=== PATIENT | female | born 1970 | race Caucasian/White ===

== ENCOUNTER 2018-03-25 07:41 | Day surgery (SDC) | payer BC ==
[2018-03-24 15:16] LABS: Albumin 3.2 g/dL (3.4-5.0); Bilirubin Total 0.3 mg/dL (0.2-1.0); Folic Acid, (Folate) 14.2 ng/mL (3.1-17.5); Protein, Total 5.7 g/dL (6.4-8.2)
[2018-03-24 15:23] LABS: RBC Red Blood Cell Count 3.11 M/uL (3.86-4.86)
--- OUTSIDE RECORDS SUMMARY | 2018-03-25 07:43 | XMS REPORT | Summary of Care ---
:1970 Author Encounter HQ Alec_anil(NITIN) [id number] Date(s): 08/12/14 - 08/12/14 [facility] Outpatient Imaging - [address] [address]- Discharge Disposition: Home Physician Attending: Armando Witt MD Vital Signs No data available for this section Problem List Condition Effective Dates Status Health Status Informant Asthma(Confirmed) Resolved Chronic back pain(Confirmed) Resolved Crohn disease(Confirmed) Resolved Degenerative disc disease(Confirmed) Resolved Allergies, Adverse Reactions, Alerts No data available for this section Medications No data available for this section Results No data available for this section Immunizations Vaccine Date Refusal Reason diphtheria/pertussis, acel/tetanus adult 08/04/12 Procedures No data available for this section Social History No data available for this section Assessment and Plan No data available for this section
--- OUTSIDE RECORDS SUMMARY | 2018-03-25 07:43 | XMS REPORT | Continuity of Care Document ---
:1970 Author Organization Interface Problems Problem Status Onset Classification Date Comments Source Date Reported Low back Active 07/08/19 Problem 10/15/2017 Data migrated Mischer pain<sup>1</sup 15 from [facility] Neuro > Centricity on 12/05/14. Lumbar Active 07/08/19 Problem 10/15/2017 Data migrated Mischer radiculopathy<s 15 from GE Neuro up>2</sup> Centricity on 12/05/14. Asthma Resolved Problem 10/15/2017 Mischer Neuro, LEYDA Hernández Chronic back Resolved Problem 10/15/2017 Mischer pain Neuro, LEYDA Hernández Crohn disease Resolved Problem 10/15/2017 Mischer Neuro, LEYDA Hernández Degenerative Resolved Problem 10/15/2017 Mischer disc disease Neuro, LEYDA Hernández Medications Medication Details Route Status Patient Ordering Order Source Instructions Provider Date Allergies, Adverse Reactions, Alerts Substance Category Reaction Severity Reaction Status Date Comments Source type Reported traMADol<hughes Assertion Drug Active Data Mischer p>1</sup> allergy 5 migrated Neuro from GE Centricity on 12/04/14. Originally documented as CONZIP. rOPINIRole< Assertion Drug Active Data Mischer sup>2</sup> allergy 5 migrated Neuro from GE Centricity on 12/04/14. Originally documented as REQUIP. Immunizations Immunization Date Site Status Last Comments Source Given Updated diphtheria/pertus Right completed Angel Mischer sis, acel/tetanus 3 deltoid Neuro, adult LEYDA Hernández Results Order Results Value Reference Date Interpretation Comments Source Name Range Spine Spine EXAM: MRI LUMBAR SPINE WITHOUT CONTRAST 08/12 - LEYDA lumbar wo lumbar - Edgar contrast contrast This report was dictated by a Sheet Metal Worker Supervisor/ Fellow. I have personally reviewed the images as MRI MRI well as the Resident's interpretation and agree with the findings. DATE: 06/02/2014 at 1416 hours Read by: Melany Velez MD Resident: Melany Velez MD Dictated Date/time: 08/14/14 09:48 Electronically Signed by: Caio Chavez MD 08/14/14 17:16 FINAL REPORT INDICATION: Radiculitis TECHNIQUE: Multiplanar, multisequence MRI of the lumbar spine without intravenous contrast administration. COMPARISON: No prior studies are available for comparison. DISCUSSION: The lumbar spine demonstrates normal alignment. Vertebral bodies are normal in height and signal intensity. No osseous lesions are identified. The conus medullaris is normal is size, signal intensity, and position, terminating at the L1-L2 level. Evaluation of the individual levels demonstrates: L1/L2: No disc herniation, spinal canal stenosis, or neural foraminal narrowing. L2/L3: No disc herniation, spinal canal stenosis, or neural foraminal narrowing. L3/L4: No disc herniation, spinal canal stenosis, or neural foraminal narrowing. There are mild degenerative changes of the bilateral facets with thickening of the ligamentum flavum. L4/L5: There is a mild diffuse 3 mm disc bulge and mild disc height loss. Focal high T2 signal within the posterior disc is consistent with an annular fissure. No spinal canal stenosis or neural foraminal narrowing. L5/S1: There is loss of disc height with mild disc bulge. Fatty degenerative endplate changes are consistent with Modic type II. No spinal canal stenosis or neuroforaminal narrowing. The paraspinal soft tissues and visualized retroperitoneal structures are within normal limits. IMPRESSION: 1. Mild degenerative changes at L4-L5 with a mild disc bulge and annular fissure. Annular fissure is a potential source of discogenic back pain. 2. Diffuse disc bulge with Modic type II degenerative endplate changes L5- S1 Spine Spine EXAM: MRI of the cervical spine without contrast 08/12 - [facility] cervical cervical /2014 - Hernández wo wo contrast contrast MRI MRI DATE: August 12, 2014 03:48:25 PM Read by: Rubi Jones MD Dictated Date/time: 08/14/14 14:11 Electronically Signed by: Rubi Jones MD 08/14/14 14:35 FINAL REPORT CLINICAL HISTORY: 723.4 Brachial Neuritis or Radiculitis Nos COMPARISON: CT cervical spine without contrast August 03, 2012 TECHNIQUE: Sagittal and axial unenhanced images of the cervical spine were obtained. . FINDINGS: The visualized portion of the posterior fossa is unremarkable. The craniocervical junction and C1-C2 articulation are unremarkable. The cervical vertebral bodies are normal in height. Multilevel degener ative changes are noted throughout the cervical spine. Minimal retrolisthesis of C4 on C5. Minimal anterolisthesis of C5 on C6, C6 on C7 and C7 on T1. C2-C3: No significant spinal canal or neural foraminal stenosis. C3-C4: Mild loss of disc height with endplate osteophytes. 2 mm posterior disc osteophyte complex partially effaces the ventral CSF space without mass effect on the cord. Borderline narrowing the spinal canal. The thecal sac measures 10 mm in midline AP dimension. No significant neural foraminal stenosis. Mild bilateral uncovertebral hypertrophy. Mild left greater than right facet hypertrophy. C4-C5: Moderate loss of disc height with endplate osteophytes 3 mm posterior disc osteophyte complex effaces the ventral CSF space and minimally flattens the ventral surface of the cord. Mild spinal can al stenosis. The thecal sac measures 9 mm in midline AP dimension. Bilateral uncovertebral hypertrophy. Right greater the left facet hypertrophy. Mild right greater than left neural foraminal stenosis. C5-C6: Severe loss of disc height with endplate osteophytes and small Schmorl's nodes. 3 mm posterior disc osteophyte complex effaces the ventral CSF space mildly flattens the ventral surface of th e cord. Mild spinal canal stenosis. Thecal sac measures 9 mm in midline AP dimension. Bilateral uncovertebral hypertrophy. Mild bilateral facet hypertrophy. Mild right neural foraminal stenosis. C6-C7: Moderate to severe loss of disc height with endplate osteophytes. 3 mm posterior disc osteophyte complex effaces the ventral CSF space and minimally flattens surface the cord. Borderline to mild spinal canal stenosis. The thecal sac measures 9 to 10 mm in midline AP dimension. Right greater than left uncovertebral hypertrophy. Mild bilateral facet hypertrophy. Moderate right neural foraminal stenosis. C7-T1: Severe loss of disc height with endplate osteophytes and Schmorl's nodes. 2.5 mm posterior disc osteophyte complex partially effaces the ventral CSF space without mass effect on the cord. Th e thecal sac measures 12 mm in midline AP dimension. No significant spinal canal stenosis. Right greater than left uncovertebral hypertrophy. Mild right neural foraminal stenosis. Stable mild chronic superior endplate compression deformity of T4. The cervical cord is normal in signal intensity. No intradural lesions. The paraspinous soft tissues are unremarkable. IMPRESSION: Multilevel degenerative change with loss of disc height and endplate osteophytes throughout the cervical spine. Mild spinal canal stenosis with posterior disc osteophyte complexes mildly fla ttening the ventral surface the cord at C4-C5, C5-C6 and C6-C7. Uncovertebral and facet arthropathy result in neural foraminal stenosis greatest on the right at C6-C7. Vital Signs Vital Sign Value Date Comments Source Encounters Location Location Encounter Encounter Reason Attending ADM DC Status Source Details Type Number For Provider Date Date Visit [facility] Outpt Diag [id number] Armando Witt 08/12 08/13 [facility] Outpatient Services /2014 [facility] MNA Spine Phone [id number] 08/25 08/27 [facility] Message /2017 Neuro MNA Spine Phone [id number] 08/27 08/29 [facility] Message /2017 Neuro Outpatient [id number] DEVORA [facility]02 [facility] Joseph MNA Spine Phone [id number] 09/02 09/04 [facility] Message /2017 Neuro MNA Spine Ambulatory [id number] Devora 09/02 09/02 [facility] Pre-Reg Buys /2017 Neuro Outpatient [id number] DEVORA 09/14 [facility] /2018 Joseph MNA Spine Phone [id number] 09/14 09/16 [facility] Message /2017 Neuro MNA Spine Phone [id number] 09/14 09/16 [facility] Message /2017 Neuro MNA Spine Ambulatory [id number] Armando Witt 09/14 09/14 [facility] Pre-Reg /2017 Neuro Outpatient [id number] DEVORA 09/28 [facility] BU[facility] /2018 Joseph MNA Phone [id number] 09/28 09/30 [facility] Neurosurger Message /2017 Neuro y [facility] MNA Spine Phone [id number] 09/28 09/30 [facility] Message /2017 Neuro MNA Spine Ambulatory [id number] Armando Witt 09/28 09/28 [facility] Pre-Reg /2017 Neuro MNA Spine Phone [id number] 10/09 10/11 [facility] Message /2017 Neuro MNA Spine Phone [id number] 10/09 10/11 [facility] Message /2017 Neuro Outpatient [id number] DEVORA 10/12 [facility] BUYS Joseph MNA Spine Ambulatory [id number] Armando Witt 10/12 10/12 [facility] Pre-Reg /2017 Neuro Procedures Procedure Code Date Perfomer Comments Source
--- OUTSIDE RECORDS SUMMARY | 2018-03-25 07:44 | XMS REPORT | Summary of Care ---
:1970 Author Organization [facility] Spine [facility] Address [address] [facility], [facility] [address] [place] [address]- Encounter HQ Encntr_alias(FIN) [id number] Date(s): 09/02/17 - 09/03/17 [facility] Spine [facility] [address] [facility] [address] [place] [address]- [phone] Vital Signs No data available for this section Problem List Condition Effective Dates Status Health Status Informant Asthma(Confirmed) Resolved Chronic back pain(Confirmed) Resolved Crohn disease(Confirmed) Resolved Degenerative disc disease(Confirmed) Resolved Low back pain1 07/07/14 Active Lumbar radiculopathy2 07/07/14 Active 1Data migrated from [facility] Centricity on 12/05/14.2Data migrated from [facility] Centricity on 12/05/14. Allergies, Adverse Reactions, Alerts Substance Reaction Severity Status traMADol1 Active rOPINIRole2 Active 1Data migrated from [facility] Centricity on 12/04/14. Originally documented as CONZIP.2Data migrated from [facility] Centricity on 12/04/14. Originally documented as REQUIP. Medications No data available for this section Results No data available for this section Immunizations Given and Recorded Vaccine Date Status Refusal Reason diphtheria/pertussis, acel/tetanus adult 08/04/12 Given Procedures No data available for this section Social History No data available for this section Assessment and Plan No data available for this section
--- OUTSIDE RECORDS SUMMARY | 2018-03-25 07:44 | XMS REPORT | Summary of Care ---
:1970 Author Organization [facility] Spine [facility] Address [address] [facility] [address] [place] [address]- Encounter HQ Juliánntr_anil(FIN) [id number] Date(s): 10/12/17 - 10/12/17 [facility] Spine [facility] [address] [facility], [facility] [address] [place], [place] [address] [phone] Attending Physician: Devora Knott NP Referring Physician: Armando Witt MD Vital Signs No data [...]
--- OUTSIDE RECORDS SUMMARY | 2018-03-25 07:44 | XMS REPORT | Summary of Care ---
:1970 Author Organization [facility] Spine [facility] Address [address] [facility] [address] [place] [address]- Encounter HQ Encntr_alias(FIN) [id number] Date(s): 10/09/17 - 10/10/17 [facility] Spine [facility] [address] [place] [address] [address] [place] [address] [phone] Vital Signs No data available for this [...]
--- OUTSIDE RECORDS SUMMARY | 2018-03-25 07:44 | XMS REPORT | Summary of Care ---
:1970 Author Organization [facility] Spine [facility] Address [address] [facility], [facility] [address] [place] [address]- Encounter HQ Encntr_alias(FIN) [id number] Date(s): 09/14/17 - 09/15/17 [facility] Spine [address] [place] [address] [phone] Vital Signs No data available for this [...]
--- OUTSIDE RECORDS SUMMARY | 2018-03-25 07:44 | XMS REPORT ---
:1970 Author Organization [facility] Address [address] Cui [address] [place] [address] Care Team Providers Name Role Phone Unavailable Unavailable Unavailable Problems This patient has no known problems. Allergies, Adverse Reactions, Alerts This patient has no known allergies or adverse reactions. Medications This patient has no known medications.
--- OUTSIDE RECORDS SUMMARY | 2018-03-25 07:44 | XMS REPORT | Summary of Care ---
:1970 Author Organization [facility] Spine [facility] Address [address] [facility], [facility] [address] [place] [address]- Encounter HQ Juliánntr_anil(FIN) [id number] Date(s): 09/28/17 - 09/28/17 [facility] Spine [place] [id number] [facility], [facility] [address] [place] [address] [phone] Attending Physician: Devora Knott NP Referring Physician: [...]
--- OUTSIDE RECORDS SUMMARY | 2018-03-25 07:44 | XMS REPORT | Summary of Care ---
:1970 Author Organization [facility] Spine [facility] Address [address] [facility] [address] [place] [address]- Encounter HQ Juliánntr_anil(FIN) [id number] Date(s): 09/02/17 - 09/02/17 [facility] Spine [facility] [address] [facility] [address] [place] [address] [phone] Attending Physician: Devora Knott NP Referring Physician: [...]
--- OUTSIDE RECORDS SUMMARY | 2018-03-25 07:44 | XMS REPORT | Summary of Care ---
:1970 Author Organization [facility] Spine [facility] Address [address] [facility], [facility] [address] [place] [address]- Encounter HQ Encntr_alias(FIN) [id number] Date(s): 09/14/17 - 09/15/17 [facility] Spine [facility] [address] [facility] [address] [place] [address] [phone] Vital Signs No data available for this [...]
--- OUTSIDE RECORDS SUMMARY | 2018-03-25 07:44 | XMS REPORT | Summary of Care ---
:1970 Author Organization [facility] Spine [facility] Address [address] [facility], [facility] [address] [place] [address]- Encounter HQ Encntr_alievi(FIN) [id number] Date(s): 08/27/17 - 08/28/17 [facility] Spine [facility] [address] [facility] [address] [place] [address] [phone] Vital Signs No data available for this [...]
--- OUTSIDE RECORDS SUMMARY | 2018-03-25 07:44 | XMS REPORT | Summary of Care ---
:1970 Author Organization [facility] Spine [facility] Address [address] [facility], [facility] [address] [place] [address]- Encounter HQ Juliánntr_anil(FIN) [id number] Date(s): 09/14/17 - 09/14/17 [facility] Spine [facility] [address] [facility], [facility] [address] [place] [address] [phone] Attending Physician: Devora Knott NP Referring Physician: [...]
--- OUTSIDE RECORDS SUMMARY | 2018-03-25 07:44 | XMS REPORT | Summary of Care ---
:1970 Author Organization [facility] Spine [facility] Address [address] [facility] [address] [place] [address]- Encounter HQ Encntr_alias(FIN) [id number] Date(s): 10/09/17 - 10/10/17 [facility] Spine [facility] [address] [facility] [address] [place] [address] [phone] Vital Signs No data available for this [...]
--- OUTSIDE RECORDS SUMMARY | 2018-03-25 07:44 | XMS REPORT | Summary of Care ---
:1970 Author Organization [facility] Spine [facility] Address [address] [facility] [address] [place] [address]- Encounter HQ Encntr_alias(FIN) [id number] Date(s): 08/25/17 - 08/26/17 [facility] Spine [facility] [address] [facility] [address] [place] [address] [phone] Vital Signs No data available for this [...]
--- OUTSIDE RECORDS SUMMARY | 2018-03-25 07:44 | XMS REPORT | Summary of Care ---
:1970 Author Organization [facility] Address [address] [place] [address], [address] [place] [address]- Encounter HQ Encntr_alias(FIN) [id number] Date(s): 09/28/17 - 09/29/17 [facility] [address] [facility], [address] [place] [address] [phone] Vital Signs No data available for this [...]
--- OUTSIDE RECORDS SUMMARY | 2018-03-25 07:44 | XMS REPORT | Summary of Care ---
:1970 Author Organization [facility] Spine [facility] Address [address] [facility] [address] [place] [address]- Encounter HQ Encntr_alievi(FIN) [id number] Date(s): 09/28/17 - 09/29/17 [facility] Spine [facility] [address] [place] [address] [address] [place] [address] [phone] Vital Signs No data available for this [...]
[2018-03-25] MEDS ORDERED: NA CHLORIDE 0.9% 250 ML ONE ×2 (09:23→11:48)
[2018-03-25 15:58] LABS: Hematocrit 25.7 % (36.0-45.0)
== END 2018-03-25 15:55 | disposition home or self-care (01) ==
LOC: DS 07:41
PROVIDERS: ATTEND Internal Medicine Medical Oncology
PROC: 30233N1 Transfusion of Nonautologous Red Blood Cells into Peripheral Vein, Percutaneous Approach (ICD-10-PCS; principal; 2018-03-25)
DX: D50.0 Iron deficiency anemia secondary to blood loss (chronic) (principal)
CPT/HCPCS: 36415; 36430; 80053; 82607; 82728; 82746; 83540; 84466; 85014; 85018; 85044; 86850; 86900; 86901; P9016

== ENCOUNTER 2018-08-06 17:53 | Observation (INO) | payer OTHER ==
--- OUTSIDE RECORDS SUMMARY | 2018-08-06 17:56 | XMS REPORT | Continuity of Care Document ---
:1970 Author Organization Interface Problems Problem Status Onset Classification Date Comments Source Date Reported Low back Active 07/08/19 Problem 05/24/2018 Data migrated Mischer pain<sup>1</sup 15 from [facility] Neuro > Centricity on 12/05/14. Lumbar Active 07/08/19 Problem 05/24/2018 Data migrated Mischer radiculopathy<s 15 from GE Neuro up>2</sup> Centricity on 12/05/14. Asthma Resolved Problem 05/24/2018 Mischer Neuro, LEYDA Hernández Chronic back Resolved Problem 05/24/2018 Mischer pain Neuro, LEYDA Hernández Crohn disease Resolved Problem 05/24/2018 Mischer Neuro, LEYDA Hernández Degenerative Resolved Problem 05/24/2018 Mischer disc disease Neuro, LEYDA Hernández Medications [...] contrast This report was dictated by a Lime Hide Inspector/ Fellow. I have personally reviewed the images [...] Type Number For Provider Date Date Visit [facility] Outpt Diag [id number] Armando Witt 08/12 08/13 [facility] Outpatient Services /2014 [facility] MNA Spine Phone [id number] 08/25 08/27 [facility] Message /2017 Neuro MNA Spine Phone [id number] 08/27 08/29 [facility] Message /2017 Neuro Outpatient [id number] DEVORA 09/02 [facility] /2017 Joseph MNA Spine Phone [id number] 09/02 09/04 [facility] Message /2017 Neuro MNA Spine Ambulatory [id number] Devora 09/02 09/02 [facility] Pre-Reg Buys /2017 Neuro Outpatient [id number] DEVORA 09/14 [facility] BU[facility] /2018 [facility] MNA Spine Phone [id number] 09/14 09/16 [facility] Message /2017 Neuro MNA Spine Phone [id number] 09/14 09/16 [facility] Message /2017 Neuro MNA Spine Ambulatory [id number] Armando Witt 09/14 09/14 [facility] Pre-Reg /2017 Neuro Outpatient [id number] DEVORA 09/28 [facility] /2018 [facility] MNA Phone [id number] 09/28 09/30 [facility] Message /2017 Neuro y [facility] MNA Spine Phone [id number] 09/28 09/30 [facility] Message /2017 Neuro MNA Spine Ambulatory [id number] Armando Witt 09/28 09/28 [facility] Pre-Reg /2017 Neuro MNA Spine Phone [id number] 10/09 10/11 [facility] Message /2017 Neuro MNA Spine Phone [id number] 10/09 10/11 [facility] Message /2017 Neuro Outpatient [id number] DEVORA 10/12 [facility] BUYS Joseph MNA Spine Ambulatory [id number] Armando Witt 10/12 10/12 [facility] Pre-Reg /2017 Neuro MNA Phone [id number] 11/03 11/05 [facility] Message /2017 Neuro y [facility] Procedures Procedure Code Date Perfomer Comments Source
--- OUTSIDE RECORDS SUMMARY | 2018-08-06 17:56 | XMS REPORT ---
:1970 [facility] Address [address] [place] [address] Dr. Cui [address] [place] [address] Care Team Providers Name Role Phone Unavailable Unavailable Unavailable Problems This patient has no known problems. Allergies, Adverse Reactions, Alerts This patient has no known allergies or adverse reactions. Medications This patient has no known medications.
[2018-08-06 18:56] LABS: Absolute Lymphocytes (CBC) 1.9 K/uL (0.7-4.9); Absolute Monocytes 0.5 K/uL (0.1-1.3); Absolute Neutrophil 4.1 K/uL (1.8-8.0); Basophils % 0.6 % (0-1.3); Eosinophils % 11.4 % (0-4.4); Hematocrit 36.8 % (36.0-45.0); MPV 8.3 fL (7.6-11.3); Monocytes % 7.1 % (3.3-12.3)
[2018-08-06 19:05] LABS: Protime INR 1.11
[2018-08-06 19:17] LABS: ALT/SGPT 46 U/L (12-78); AST/SGOT 33 U/L (15-37); Albumin 3.4 g/dL (3.4-5.0); Alkaline Phosphatase 115 U/L (45-117); BUN Blood Urea Nitrogen 26 mg/dL (7-18); Bicarbonate 31 mmol/L (21-32); Bilirubin Direct < 0.1 mg/dL (0-0.2); Bilirubin Total 0.3 mg/dL (0.2-1.0); Glucose Level 120 mg/dL (74-106); Magnesium 2.5 mg/dL (1.8-2.4); NT PRO-BNP 18 pg/mL (<125); Potassium 3.8 mmol/L (3.5-5.1); Protein, Total 6.5 g/dL (6.4-8.2); Sodium Level 146 mmol/L (136-145); Troponin (Emerg Dept Use Only) < 0.02 ng/mL (0.0-0.045)
--- NOTE | 2018-08-06 19:18 | RAD REPORT ---
EXAM DESCRIPTION: CT - Head C Spine Mpr Wo Con - 08/06/2018 6:47 pm CLINICAL HISTORY: Head and neck injury status post fall. Head and neck pain COMPARISON: 2016 TECHNIQUE: Computed axial tomography of the head and cervical spine was obtained. Sagittal and coronal reconstruction was performed. All CT scans are performed using dose optimization technique as appropriate and may include automated exposure control or mA/KV adjustment according to patient size. FINDINGS: An intracranial bleed is not seen. The ventricles are normal in caliber. An extra-axial fl uid collection is not noted.Fluid within the visualized sinuses and mastoids is not seen A cervical fracture is not visualized. No dislocation is noted. IMPRESSION: No acute intracranial abnormality is seen. A cervical fracture is not visualized. If the patient continues to have symptoms to suggest intracra nial /spinal cord pathology then MRI would be recommended
--- NOTE | 2018-08-06 19:25 | RAD REPORT ---
EXAM DESCRIPTION: Verónica Single View08/06/2018 7:17 pm CLINICAL HISTORY: Chest pain COMPARISON: none FINDINGS: The lungs appear clear of acute infiltrate. The heart is normal size IMPRESSION: No acute abnormalities displayed
--- NOTE | 2018-08-06 19:25 | RAD REPORT ---
EXAM DESCRIPTION: RAD - Pelvis - 08/06/2018 7:17 pm CLINICAL HISTORY: Pelvic pain status post injury FINDINGS: No fracture or dislocation is seen.
--- NOTE | 2018-08-06 19:25 | RAD REPORT ---
EXAM DESCRIPTION: RAD - Hip Right 2 View - 08/06/2018 7:17 pm CLINICAL HISTORY: Right hip pain FINDINGS: No fracture or dislocation is seen.
--- NOTE | 2018-08-06 23:08 | ER ---
Nurse's Notes [facility] Name: Erlinda Cruz Age: 48 yrs Sex: Female : 1970 Arrival Date: 08/06/2018 Time: 18:01 Bed 27 Private MD: Diagnosis: Syncope and collapse Presentation: 08/06 18:01 Presenting complaint: EMS states: Pt was found by on the kitchen floor 40 ca1 minutes ago. Pt was responsive but it is unknown if pt had LOC, how she got into the floor. Pt is unable to recall how she got on the floor. Pt had a HX of seizure 2 years ago. Pt is on oxycodone and morphine pump for chronic back pain for disc degeneration. Pt is feels cold and EMS is unable to obtain Temp of greater than 92-94F by axilla or oral. Transition of care: patient was not received from another setting of care. Onset of symptoms was August 06, 2018. Risk Assessment: Do you want to hurt yourself or someone else? Patient reports no desire to harm self or others. Initial Sepsis Screen: Does the patient meet any 2 criteria? RR > 20 per min. HR > 90 bpm. Yes Does the patient have a suspected source of infection? No. Patient's initial sepsis screen is negative. Care prior to arrival: Medication(s) given: Normal saline infusion, IV initiated. 20 GA, in the right antecubital area, Glucose check: 146. 18:01 Method Of Arrival: EMS: [facility] ca1 18:01 Acuity: EMMANUEL 3 ca1 Triage Assessment: 18:13 General: Appears in no apparent distress. ill, Behavior is calm, appropriate for age, ca1 drowsy. General: Reports generalized bodyaches. Pain: Complains of pain in scalp. 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 - Social history:: Smoking status: Patient/guardian denies using tobacco. - Ebola Screening: : No symptoms or risks identified at this time. Screenin:20 Abuse screen: Denies threats or abuse. Denies injuries from another. Nutritional rv screening: No deficits noted. Tuberculosis screening: No symptoms or risk factors identified. Fall Risk None identified. Assessment: 19:00 General: Appears in no apparent distress. uncomfortable, Behavior is cooperative, rv agitated. 19:00 Pain: Complains of pain in scalp. Neuro: Level of Consciousness is awake, alert, obeys rv commands, Oriented to person, place, time, situation. Cardiovascular: Capillary refill < 3 seconds. Respiratory: Airway is patent. GI: No signs and/or symptoms were reported involving the gastrointestinal system. : No signs and/or symptoms were reported regarding the genitourinary system. EENT: No signs and/or symptoms were reported regarding the EENT system. Derm: Skin is intact. Musculoskeletal: No signs and/or symptoms reported regarding the musculoskeletal system. 20:33 Reassessment: Patient appears in no apparent distress at this time. Patient and/or rv family updated on plan of care and expected duration. Pain level reassessed. Patient is alert, oriented x 3, equal unlabored respirations, skin warm/dry/pink. Patient states feeling better. Vital Signs: 18:13 BP 133 / 108; Pulse 101; Resp 24; Temp 92.1(O); Pulse Ox 100% on R/A; Weight 104.33 kg; ca1 Height 5 ft. 5 in. (165.10 cm); Pain 8/10; 19:00 BP 115 / 68 LA Supine; Pulse 81; Resp 18 S; Pulse Ox 98% on R/A; rv 19:30 BP 103 / 73 LA Supine; Pulse 86; Resp 17 S; Pulse Ox 96% on R/A; rv 20:00 BP 109 / 74; Pulse 84; Resp 18; Pulse Ox 98% ; rv 20:30 BP 107 / 95; Pulse 84; Resp 16; Pulse Ox 99% ; rv 20:46 Temp 96.1; rv 21:00 BP 118 / 73; Pulse 84; Resp 18; Pulse Ox 98% ; rv 21:30 BP 112 / 71; Pulse 84; Resp 18; Pulse Ox 96% ; rv 22:00 BP 104 / 73 LA Supine; Pulse 84; Resp 18 S; Pulse Ox 96% on R/A; rv 08/07 00:36 BP 113 / 80; Pulse 88; Resp 18; Pulse Ox 98% ; rv 08/06 18:13 Body Mass Index 38.27 (104.33 kg, 165.10 cm) ca1 NIH Stroke Scale Scores: 08/06 18:25 NIHSS Score: 0 cp ED Course: 18:01 Patient arrived in ED. ca1 18:05 Obdulio Centeno PA is PHCP. cp 18:05 Rogelio Haley MD is Attending Physician. cp 18:09 Triage completed. ca1 18:13 Arm band placed on right wrist. ca1 18:[address] vm2 18:47 Houston Felix, JANIS is Primary Nurse. rv 18:48 CT Head C Spine In Process Unspecified. EDMS 19:17 XRAY Chest (1 view) In Process Unspecified. EDMS 19:17 Hip Right 2 View XRAY In Process Unspecified. EDMS 19:17 Pelvis XRAY In Process Unspecified. EDMS 19:20 Patient has correct armband on for positive identification. Bed in low position. Call rv light in reach. Side rails up X 1. Adult w/ patient. residential monitor on. Pulse ox on. NIBP on. 19:20 Maintain EMS IV. Dressing intact. Good blood return noted. Site clean \T\ dry. Gauge \T\ rv site: G20 RIGHT AC. 19:24 Obdulio Domínguez MD is Attending Physician. cp 21:33 CT Chest, Abdomen, Pelvis - W/Contrast In Process Unspecified. EDMS 23:07 Rogelio Perez MD is Hospitalizing Provider. cp 08/07 00:37 No provider procedures requiring assistance completed. Patient admitted, IV remains in rv place. Administered Medications: 08/06 19:00 Drug: NS 0.9% 1000 ml Route: IV; Rate: 1 bolus; Site: right antecubital; rv 20:34 Follow up: IV Status: Completed infusion; IV Intake: 1000ml rv 23:20 Drug: fentaNYL (PF) 25 mcg Route: IVP; Site: right antecubital; rv 08/07 00:36 Follow up: Response: Pain is decreased rv 00:35 Drug: NS 0.9% 1000 ml Route: IV; Rate: 125 ml/hr; Site: right antecubital; rv 00:36 Follow up: IV Status: Infusion continued upon admission rv Intake: 08/06 20:34 IV: 1000ml; Total: 1000ml. rv Outcome: 23:08 Decision to Hospitalize by Provider. cp 08/07 00:37 Admitted to Med/surg accompanied by nurse, via wheelchair, room 225, with chart, Report rv called to COREY Condition: good Instructed on the need for admit, Demonstrated understanding of instructions. 00:38 Patient left the ED. rv NIH Stroke Scale - NIH Stroke Score Date: 08/06/2018 Time: 18:25 Total Score = 0 1a. Level of Consciousness (LOC) - 0(Alert) 1b. Level of Consciousness (LOC) (Year \T\ Age) - 0(Both) 1c. LOC Commands (Open \T\ Closes Eyes/Object Oriented Programmer) - 0(Both) 2. Best Gaze (Lateral Gaze Paresis) - 0(Normal) 3. Visual Field Loss - 0(No visual loss) 4. Facial Palsy - 0(Normal) 5a. Left Arm: Motor (10-second hold) - 0(No drift) 5b. Right Arm: Motor (10-second hold) - 0(No drift) 6a. Left Leg: Motor (5-second hold - always test supine) - 0(No drift) 6b. Right Leg: Motor (5-second hold - always test supine) - 0(No drift) 7. Limb Ataxia (finger/nose \T\ heel/lepe - test with eyes open) - 0(Absent) 8. Sensory Loss (pinprick arms/legs/face) - 0(Normal) 9. Best Language: Aphasia (description/naming/reading) - 0(No aphasia) 10. Dysarthria (speech clarity - read or repeat words) - 0(Normal) 11. Extinction and Inattention (visual/tactile/auditory/spatial/personal) - 0(No abnormality) Initials: cp Signatures: Dispatcher [employer] EDNH Obdulio Centeno PA PA cp McGuire, Victoria vm2 Houston Felix RN RN rv Nora Quezada RN RN ca1 Corrections: (The following items were deleted from the chart) 08/06 18:25 18:13 LMP N/A - Hysterectomy ca1 ca1
--- NOTE | 2018-08-06 23:08 | EDPHYS ---
Physician Documentation [facility] Name: Erlinda Cruz Age: 48 yrs Sex: Female : 1970 Arrival Date: 08/06/2018 Time: 18:01 Bed 27 Private MD: ED Physician Obdulio Domínguez HPI: 08/06 18:20 This 48 yrs old Female presents to ER via EMS with complaints of found on cp ground. 18:20 Details of fall: The patient fell from an upright position, while standing, and struck cp a tile surface. Onset: The symptoms/episode began/occurred 1 hour(s) ago. Associated injuries: The patient sustained injury to the low back, pain. reports he returned home and found patient sitting up on kitchen floor. Patient unable to recall recent events. 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 - Social history:: Smoking status: Patient/guardian denies using tobacco. - Ebola Screening: : No symptoms or risks identified at this time. ROS: 18:25 Constitutional: Positive for chills, Negative for body aches, fever, poor PO intake. cp 18:25 Eyes: Negative for injury, pain, redness, and discharge. cp 18:25 ENT: Negative for drainage from ear(s), ear pain, sore throat, difficulty swallowing, difficulty handling secretions. 18:25 Cardiovascular: Negative for chest pain, edema. 18:25 Respiratory: Negative for cough, wheezing. 18:25 Abdomen/GI: Negative for abdominal pain, vomiting, diarrhea, constipation, black/tarry stool, rectal bleeding. 18:25 Back: Positive for pain at rest, pain with movement, of the low back. 18:25 : Negative for urinary symptoms, vaginal bleeding. 18:25 Skin: Negative for rash. 18:25 Neuro: Positive for syncope, weakness, Negative for altered mental status. 18:25 All other systems are negative. Exam: 18:25 Constitutional: The patient appears in no acute distress, alert, awake, cp non-diaphoretic, non-toxic, well developed, well nourished, uncomfortable. 18:25 Head/Face: Normocephalic, atraumatic. cp 18:25 Eyes: Periorbital structures: appear normal, Pupils: equal, round, and reactive to light and accomodation, Extraocular movements: intact throughout, Conjunctiva: normal, no exudate, no injection, Sclera: no appreciated abnormality, Lids and lashes: appear normal, bilaterally. 18:25 ENT: External ear(s): are unremarkable, Ear canal(s): are normal, clear, TM's: dullness, bilaterally, Nose: is normal, Mouth: Lips: moist, Oral mucosa: moist, Posterior pharynx: Airway: no evidence of obstruction, patent, swelling, is not appreciated, erythema, is not appreciated, exudate, is not appreciated, Voice: is normal. 18:25 Neck: C-spine: C-collar placed in ED. 18:25 Chest/axilla: Inspection: normal, Palpation: is normal, no crepitus, no tenderness. 18:25 Cardiovascular: Rate: tachycardic, Rhythm: regular, Pulses: Pulses are 2+ in right radial artery and left radial artery. Heart sounds: murmur, not appreciated, Edema: ankle edema, that is mild, JVD: is not appreciated. 18:25 Respiratory: the patient does not display signs of respiratory distress, Respirations: normal, no use of accessory muscles, no retractions, no splinting, no tachypnea, labored breathing, is not present, Breath sounds: are clear throughout, no decreased breath sounds, no stridor, no wheezing. 18:25 Abdomen/GI: Inspection: abdomen appears normal, Bowel sounds: active, all quadrants, Palpation: soft, in all quadrants, mild abdominal tenderness, in all quadrants, voluntary guarding, is not appreciated, involuntary guarding, is not appreciated. 18:25 Back: pain, that is moderate, of the lumbar area, ROM is painful, with all movement, Straight leg raises: of both lower extremities does not illicit pain. 18:25 Musculoskeletal/extremity: Extremities: grossly normal except: noted in the right hip: pain, tenderness, ROM: limited passive range of motion due to pain, in the right hip. 18:25 Skin: cellulitis, is not appreciated, no rash present. 18:25 Neuro: Orientation: to person, place \T\ time. Mentation: slow to respond, sleepy, Motor: moves all fours, general weakness w/o focal deficits, Sensation: no obvious gross deficits. 19:30 ECG was reviewed by the Attending Physician. cp Vital Signs: 18:13 BP 133 / 108; Pulse 101; Resp 24; Temp 92.1(O); Pulse Ox 100% on R/A; Weight 104.33 kg; ca1 Height 5 ft. 5 in. (165.10 cm); Pain 8/10; 19:00 BP 115 / 68 LA Supine; Pulse 81; Resp 18 S; Pulse Ox 98% on R/A; rv 19:30 BP 103 / 73 LA Supine; Pulse 86; Resp 17 S; Pulse Ox 96% on R/A; rv 20:00 BP 109 / 74; Pulse 84; Resp 18; Pulse Ox 98% ; rv 20:30 BP 107 / 95; Pulse 84; Resp 16; Pulse Ox 99% ; rv 20:46 Temp 96.1; rv 21:00 BP 118 / 73; Pulse 84; Resp 18; Pulse Ox 98% ; rv 21:30 BP 112 / 71; Pulse 84; Resp 18; Pulse Ox 96% ; rv 22:00 BP 104 / 73 LA Supine; Pulse 84; Resp 18 S; Pulse Ox 96% on R/A; rv 08/07 00:36 BP 113 / 80; Pulse 88; Resp 18; Pulse Ox 98% ; rv 08/06 18:13 Body Mass Index 38.27 (104.33 kg, 165.10 cm) ca1 NIH Stroke Scale Scores: 08/06 18:25 NIHSS Score: 0 cp MDM: 18:16 Patient medically screened. cp 18:30 Differential diagnosis: closed head injury, fracture, multiple trauma, CVA, syncope, cp cardiac arrythmia, seizure. 22:55 Physician consultation: Rogelio Perez MD was contacted at 22:55, regarding admission, cp to the telemetry unit. patient's condition. 23:00 Data reviewed: vital signs, nurses notes, lab test result(s), EKG, radiologic studies, cp CT scan, plain films, I have discussed the patient's presentation/case with the attending Emergency Department Physician; and as a result, I will admit patient. 23:00 Test interpretation: by ED physician or midlevel provider: ECG, plain radiologic cp studies. Counseling: I had a detailed discussion with the patient and/or guardian regarding: the historical points, exam findings, and any diagnostic results supporting the discharge/admit diagnosis, lab results, radiology results. Response to treatment: the patient's symptoms have mildly improved after treatment. 08/06 18:16 Order name: Urine Microscopic Only cp 08/06 18:16 Order name: UDS cp 08/06 18:16 Order name: Basic Metabolic Panel; Complete Time: 19:28 cp 08/06 19:28 Interpretation: Normal except: NA 146; CL 108; GLUC 120; BUN 26; GFR 63. cp 08/06 18:16 Order name: CBC with Diff; Complete Time: 19:28 cp 08/06 20:18 Interpretation: Normal except: HGB 11.8; MCH 26.9; RDW 15.3; EOSINOPHIL % 11.4; EOSA cp 0.8. 08/06 18:16 Order name: LFT's; Complete Time: 19:28 cp 08/06 18:16 Order name: Magnesium; Complete Time: 19:28 cp 08/06 19:29 Interpretation: MG 2.5; Reviewed. cp 08/06 18:16 Order name: NT PRO-BNP; Complete Time: 19:28 cp 08/06 18:16 Order name: PT-INR; Complete Time: 19:28 cp 08/06 18:16 Order name: Troponin (emerg Dept Use Only); Complete Time: 19:28 cp 08/06 18:16 Order name: ETOH Level; Complete Time: 19:28 cp 08/06 18:16 Order name: Lactate; Complete Time: 19:28 cp 08/06 18:16 Order name: Urine Microscopic Only EDMS 08/06 18:16 Order name: Urine Drug Screen EDNY 08/06 23:49 Order name: CBC with Automated Diff EDNY 08/06 18:16 Order name: XRAY Chest (1 view); Complete Time: 19:28 cp 08/06 18:16 Order name: EKG; Complete Time: 18:17 cp 08/06 18:16 Order name: Hip Right 2 View XRAY; Complete Time: 19:28 cp 08/06 18:16 Order name: Pelvis XRAY; Complete Time: 19:28 cp 08/06 18:16 Order name: CT Head C Spine; Complete Time: 19:28 cp 08/06 20:46 Order name: CT Chest, Abdomen, Pelvis - W/Contrast 08/06 23:49 Order name: CONS Pharmacy Consult [facility] 08/06 23:49 Order name: CBC with Automated Diff [facility] 08/06 23:49 Order name: Comprehensive Metabolic Panel [facility] 08/06 23:49 Order name: Comprehensive Metabolic Panel [facility] 08/06 23:49 Order name: Troponin I [facility] 08/06 23:49 Order name: Troponin I [facility] 08/06 23:49 Order name: Troponin I [facility] 08/06 18:16 Order name: Cardiac monitoring; Complete Time: 18:47 cp 08/06 18:16 Order name: EKG - Nurse/Tech; Complete Time: 18:47 08/06 18:16 Order name: IV Saline Lock; Complete Time: 18:47 08/06 18:16 Order name: Labs collected and sent; Complete Time: 18:47 08/06 18:16 Order name: O2 Per Protocol; Complete Time: 18:47 08/06 18:16 Order name: O2 Sat Monitoring; Complete Time: 18:47 08/06 18:16 Order name: C-Collar; Complete Time: 18:48 08/06 19:44 Order name: Misc. Order: ambulate patient; Complete Time: 20:34 08/06 23:49 Order name: Heart Healthy EDNY EC:30 Rate is 82 beats/min. Rhythm is regular. GA interval is normal. QRS interval is normal. cp QT interval is normal. T waves are Inverted in lead III. Interpreted by me. Reviewed by me. Administered Medications: 19:00 Drug: NS 0.9% 1000 ml Route: IV; Rate: 1 bolus; Site: right antecubital; rv 20:34 Follow up: IV Status: Completed infusion; IV Intake: 1000ml rv 23:20 Drug: fentaNYL (PF) 25 mcg Route: IVP; Site: right antecubital; rv 08/07 00:36 Follow up: Response: Pain is decreased rv 00:35 Drug: NS 0.9% 1000 ml Route: IV; Rate: 125 ml/hr; Site: right antecubital; rv 00:36 Follow up: IV Status: Infusion continued upon admission rv Disposition: 08/06/18 23:08 Hospitalization ordered by Rogelio Perez for Observation. Preliminary diagnosis is Syncope and collapse. - Bed requested for Telemetry/MedSurg (observation). - Status is Observation. rv - Condition is Stable. - Problem is new. - Symptoms have improved. UTI on Admission? No NIH Stroke Scale - NIH Stroke Score Date: 08/06/2018 Time: 18:25 Total Score = 0 1a. Level of Consciousness (LOC) - 0(Alert) 1b. Level of Consciousness (LOC) (Year \T\ Age) - 0(Both) 1c. LOC Commands (Open \T\ Closes Eyes/Pathology Teacher) - 0(Both) 2. Best Gaze (Lateral Gaze Paresis) - 0(Normal) 3. Visual Field Loss - 0(No visual loss) 4. Facial Palsy - 0(Normal) 5a. Left Arm: Motor (10-second hold) - 0(No drift) 5b. Right Arm: Motor (10-second hold) - 0(No drift) 6a. Left Leg: Motor (5-second hold - always test supine) - 0(No drift) 6b. Right Leg: Motor (5-second hold - always test supine) - 0(No drift) 7. Limb Ataxia (finger/nose \T\ heel/lepe - test with eyes open) - 0(Absent) 8. Sensory Loss (pinprick arms/legs/face) - 0(Normal) 9. Best Language: Aphasia (description/naming/reading) - 0(No aphasia) 10. Dysarthria (speech clarity - read or repeat words) - 0(Normal) 11. Extinction and Inattention (visual/tactile/auditory/spatial/personal) - 0(No abnormality) Initials: cp Addendum: 08/10/2018 11:07 Co-signature as Attending Physician, Obdulio Domínguez MD I agree with the [facility] assessment and plan of care. Signatures: Dispatcher [employer] EDMS Yenny Lau RN RN mw Anderson, Corey, MD MD cha Page, Corey, PA PA cp Vicente, Ronaldo, RN RN rv AcNora clayton RN RN ca1 Corrections: (The following items were deleted from the chart) 08/06 20:18 20:18 Normal except: HGB 11.8; MCH 26.9; RDW 15.3; EOSINOPHIL % 11.4. cp cp 23:46 23:08 Hospitalization Ordered by Rogelio Perez MD for Observation. Preliminary mw diagnosis is Syncope and collapse. Bed requested for Telemetry/MedSurg (observation). Status is Observation. Condition is Stable. Problem is new. Symptoms have improved. UTI on Admission? No. cp 08/07 00:36 08/06 23:08 Teran ordered. cp rv 08/07 00:38 08/06 23:46 08/06/2018 23:08 Hospitalization Ordered by Rogelio Perez MD for rv Observation. Preliminary diagnosis is Syncope and collapse. Bed requested for Telemetry/MedSurg (observation). Status is Observation. Condition is Stable. Problem is new. Symptoms have improved. UTI on Admission? No. mw
[2018-08-06] MEDS ORDERED: FENTANYL CITR 100 MCG/2 ML ONE (23:14)
[2018-08-06] MEDS ORDERED: NA CHLORIDE 0.9% 1,000 ML ONE (23:38)
[2018-08-06] MEDS ORDERED: ACETAMINOPHEN 500 MG TAB PO PRN (23:46)
[2018-08-06] MEDS ORDERED: MORPHINE 2 MG/ML SYR IV PRN (23:46)
[2018-08-06] MEDS ORDERED: ONDANSETRON 4 MG/2 ML VIAL IV PRN (23:46)
[2018-08-07] MEDS: NA CHLORIDE 0.9% 1,000 ML IV SCH ×4 (01:22→19:45)
[2018-08-07] MEDS: GABAPENTIN 300 MG CAP PO SCH (05:20)
[2018-08-07 06:01] LABS: Absolute Lymphocytes (CBC) 1.5 K/uL (0.7-4.9); Absolute Monocytes 0.5 K/uL (0.1-1.3); Absolute Neutrophil 3.1 K/uL (1.8-8.0); Basophils % 0.7 % (0-1.3); Eosinophils % 13.6 % (0-4.4); Hematocrit 32.3 % (36.0-45.0); MPV 8.5 fL (7.6-11.3); Monocytes % 7.6 % (3.3-12.3); RBC Red Blood Cell Count 3.83 M/uL (3.86-4.86)
[2018-08-07 06:05] LABS: ALT/SGPT 39 U/L (12-78); AST/SGOT 31 U/L (15-37); Albumin 2.9 g/dL (3.4-5.0); Alkaline Phosphatase 99 U/L (45-117); BUN Blood Urea Nitrogen 22 mg/dL (7-18); Bicarbonate 32 mmol/L (21-32); Bilirubin Total 0.3 mg/dL (0.2-1.0); Glucose Level 96 mg/dL (74-106); Potassium 4.3 mmol/L (3.5-5.1); Protein, Total 5.7 g/dL (6.4-8.2); Sodium Level 148 mmol/L (136-145); Troponin I < 0.02 ng/mL (0.0-0.045)
[2018-08-07] MEDS ORDERED: MOMETASONE FUROATE IN PRN (06:42)
[2018-08-07] MEDS ORDERED: CERTOLIZUMAB PEGOL 200 MG IM SCH (06:45)
[2018-08-07] MEDS ORDERED: HOME MED 1 EA UNK (Dexlansoprazole [Dexilant] 60 MG) PO SCH (09:00)
[2018-08-07] MEDS ORDERED: GABAPENTIN 1800 MG PO SCH (09:00)
[2018-08-07] MEDS: HOME MED 1 EA UNK (Fluticasone/Salmeterol [Advair 250/50 Diskus*] 2 PUFF) IH SCH (09:00)
[2018-08-07] MEDS: clonazePAM 0.5 MG TAB PO SCH ×3 (09:05→20:22)
[2018-08-07] MEDS: OXYCODONE HCL 5 MG TAB PO SCH ×3 (10:05→18:29)
--- NOTE | 2018-08-07 10:29 | EKG ---
Test Date: 2018-08-06 Test Time: 19:24:59 Metal Can Inspector: JOSE MEASUREMENT RESULTS: Intervals: Rate: 82 RI: 188 QRSD: 80 QT: 408 QTc: 476 Tea: P: 42 RI: 188 QRS: 25 T: -10 INTERPRETIVE STATEMENTS: Normal sinus rhythm Nonspecific T wave abnormality Prolonged QT Abnormal ECG Compared to ECG 06/27/2015 16:25:39 Prolonged QT interval now present T-wave abnormality still present Electronically Signed On 08-07-18 10:28:14 CDT by Kenneth Hobbs
--- NOTE | 2018-08-07 12:31 | P.PN ---
Subjective Date of Service: 08/07/18 Chief Complaint: Syncope Subjective: No C/O voiced Patient seen and examined at bedside. No family at bedside. Chart reviewed and case discussed with nursing staff. Patient admitted for syncope and collapse. Patient unsure what happened, no family at bedside. Patient states she is doing well now. Denies any chest pain, shortness of breath, dizziness, headache, vision changes, speech changes. Review of Systems 10-point ROS is otherwise unremarkable Physical Examination - Vital Signs Temperature: 96.8 F Blood Pressure: 133/81 Pulse: 80 Respirations: 18 Pulse Ox (%): 94 - Physical Exam General: Alert, In no apparent distress, Oriented x3 HEENT: Atraumatic, PERRLA, EOMI Neck: Supple, JVD not distended Respiratory: Clear to auscultation bilaterally, Normal air movement Cardiovascular: Regular rate/rhythm, Normal S1 S2 Gastrointestinal: Normal bowel sounds, No tenderness Musculoskeletal: No tenderness Integumentary: No rashes Neurological: Normal speech, Normal tone, Normal affect Lymphatics: No axilla or inguinal lymphadenopathy - Studies Laboratory Data (last 24 hrs) 08/06/18 18:40: PT 13.1 H, INR 1.11 08/06/18 18:40: WBC 7.4, Hgb 11.8 L, Hct 36.8, Plt Count 274 08/06/18 18:40: Sodium 146 H, Potassium 3.8, BUN 26 H, Creatinine 0.96, Glucose 120 H, Magnesium 2.5 H, Total Bilirubin 0.3, AST 33, ALT 46, Alkaline Phosphatase 115 Assessment And Plan - Current Problems (Diagnosis) (1) Syncope and collapse Current Visit: Yes Status: Acute Plan: Likely secondary to medication side effect versus cardiac related versus metabolic -CT head negative for any acute abnormalities -continue monitoring on tele -no tele events noted at this time -Echo, carotid ultrasound ordered, pending. (2) Fall Current Visit: Yes Status: Acute Plan: - Trauma imaging negative for any acute fractures or abnormalities - abdominal CT pending Qualifiers: Encounter type: initial encounter Qualified Code(s): W19.XXXA - Unspecified fall, initial encounter (3) Hypernatremia Current Visit: Yes Status: Acute Plan: Likely secondary to dehydration. This could be the cause of the syncope/fall. - IV fluids, normal saline (4) Crohns disease Current Visit: Yes Status: Chronic Plan: Stable at this time - Continue home medications Qualifiers: Gastrointestinal tract location: unspecified location Digestive disease complication type: without complication Qualified Code(s): K50.90 - Crohn's disease, unspecified, without complications (5) Degenerative disk disease Current Visit: No Status: Chronic Plan: -Patient currently has a morphine pump on and is on oxycodone at home. -We will continue these home medications Qualifiers: Spinal region: mid-cervical Mid-cervical spinal level: unspecified Qualified Code(s): M50.320 - Other cervical disc degeneration, mid-cervical region, unspecified level (6) Chronic back pain Current Visit: No Status: Chronic Qualifiers: Back pain location: back pain in unspecified location Back pain laterality : unspecified Qualified Code(s): M54.9 - Dorsalgia, unspecified; G89.29 - Other chronic pain (7) Asthma Current Visit: No Status: Chronic Qualifiers: Asthma severity: unspecified severity Asthma persistence: unspecified Asthma complication type: uncomplicated Qualified Code(s): J45.909 - Unspecified asthma, uncomplicated (8) Anemia Current Visit: Yes Status: Chronic Qualifiers: Anemia type: unspecified type Qualified Code(s): D64.9 - Anemia, unspecified - Plan Continue to monitor on the floor. Pending testing Possible discharge if testing is negative
[2018-08-07 14:07] LABS: Urine Appearance CLEAR; Urine Bilirubin NEGATIVE (NEG); Urine Blood NEGATIVE (NEG); Urine Color YELLOW; Urine Glucose NEGATIVE (NEG); Urine Protein NEGATIVE (NEG); Urine Specific Gravity >=1.030 (1.005-1.030); Urine Urobilinogen 0.2 mg/dL (0.2-1.0)
[2018-08-07 14:08] LABS: Barbiturates NEGATIVE (NEGATIVE); Benzodiazepines NEGATIVE (NEGATIVE); Cocaine NEGATIVE (NEGATIVE); METHAMPHETAM NEGATIVE (NEGATIVE); Methadone NEGATIVE (NEGATIVE); Opiates POSITIVE (NEGATIVE); Phencyclidine NEGATIVE (NEGATIVE); THC Cannibis NEGATIVE (NEGATIVE)
--- NOTE | 2018-08-07 14:08 | P.HP ---
Certification for Inpatient Patient admitted to: Observation With expected LOS: <2 Midnights Patient will require the following post-hospital care: None Practitioner: I am a practitioner with admitting privileges, knowledge of patient current condition, hospital course, and medical plan of care. Services: Services provided to patient in accordance with Admission requirements found in Title 42 Section 412.3 of the Code of Federal Regulations Patient History Date of Service: 08/06/18 Reason for admission: Syncope and collapse History of Present Illness: Patient is a 48-year-old female who came to the hospital after collapsing at home. Her got off at work and found her laying on the ground unresponsive. It was unknown exactly how long she had been down. She has never had this happen to her before. She recently got a morphine pain pump installed for her chronic pain from Crohn's disease. This was about 2-3 weeks ago. She does not have any recollection of the last thing she was doing yesterday. She does remember waiting for her to come home because she wanted to watch a particular movie with him. There was no incontinence and she did not bite her tongue. She will be admitted to the hospital for further evaluation. Allergies ropinirole HCl [From Requip] Allergy (Verified 08/07/18 01:08) facial swelling dermabond Allergy (Uncoded 08/07/18 01:08) Hives Tramadol HCl Allergy (Uncoded 08/07/18 01:08) seizure Home Medications: Albuterol Sulfate [Proair Hfa] 8.5 gm IH PRN PRN 07/30/16 Certolizumab Pegol [Cimzia] 200 mg IM SEECOM 07/30/16 Dexlansoprazole [Dexilant] 60 mg PO DAILY 07/30/16 Fluticasone/Salmeterol [Advair 250/50 Diskus] 2 puff IH DAILY 07/30/16 Mometasone Furoate [Nasonex] 2 puff IN DAILY PRN 07/30/16 Atorvastatin Calcium [Lipitor] 60 mg PO BEDTIME 03/25/18 Gabapentin 1,800 mg PO DAILY 03/25/18 Oxycodone HCl 15 mg PO Q6HR 03/25/18 clonazePAM [Klonopin] 0.5 mg PO TID 03/25/18 - Past Medical/Surgical History Has patient received pneumonia vaccine in the past: No Diabetic: No -: asthma -: Crohn's -: disc degeneration -: fibromyalgia -: gastric sleeve -: Morphine pump placement 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 moist/pink, EOMI, Sclerae nonicteric Neck: Supple, 2+ carotid pulse no bruit, No LAD, Without JVD or thyroid abnormality Respiratory: Clear to auscultation bilaterally, Normal air movement Cardiovascular: Regular rate/rhythm, Normal S1 S2, No murmurs Gastrointestinal: Normal bowel sounds, Soft and benign, Non-distended, No tenderness Musculoskeletal: No clubbing, No swelling, No tenderness Integumentary: No rashes Neurological: Normal gait, Normal speech, Normal strength at 5/5 x4 extr, Normal tone, Sensation intact, Cranial nerves 3-12 intact, Normal affect Lymphatics: No axilla or inguinal lymphadenopathy - Studies Laboratory Data (last 24 hrs) 08/06/18 18:40: PT 13.1 H, INR 1.11 08/06/18 18:40: WBC 7.4, Hgb 11.8 L, Hct 36.8, Plt Count 274 08/06/18 18:40: Sodium 146 H, Potassium 3.8, BUN 26 H, Creatinine 0.96, Glucose 120 H, Magnesium 2.5 H, Total Bilirubin 0.3, AST 33, ALT 46, Alkaline Phosphatase 115 Assessment & Plan - Problems (Diagnosis) (1) Chronic pain syndrome Current Visit: Yes Status: Acute (2) S/P insertion of intrathecal pump Current Visit: Yes Status: Acute (3) Syncope and collapse Current Visit: Yes Status: Acute (4) Crohns disease Current Visit: Yes Status: Chronic Qualifiers: Gastrointestinal tract location: unspecified location Digestive disease complication type: without complication Qualified Code(s): K50.90 - Crohn's disease, unspecified, without complications (5) Chronic back pain Current Visit: No Status: Chronic Qualifiers: Back pain location: back pain in unspecified location Back pain laterality : unspecified Qualified Code(s): M54.9 - Dorsalgia, unspecified; G89.29 - Other chronic pain - Plan PLAN: 1. IV hydration 2. Monitor on telemetry 3. Carotid Doppler 4. Echocardiogram 5. Monitor her labs very closely 6. Neuro checks q.4 hours 7. Check orthostatics 8. GI and DVT prophylaxis Discharge Plan: Home Plan to discharge in: 48 Hours - Advance Directives Does patient have a Living Will: No Does patient have a Durable POA for Healthcare: No - Code Status/Comfort Care Code Status Assessed: Yes Code Status: Full Code Critical Care: No Time Spent Managing PTS Care (In Minutes): 45
[2018-08-07 14:20] LABS: Urine Bacteria <20 /HPF (<20); Urine RBC <5 /HPF (NONE SEEN)
[2018-08-07 14:21] LABS: Urine Culture Reflex Order NOT NEEDED; Urine Mucus 1+ /HPF (NONE SEEN)
[2018-08-07] MEDS: PANTOPRAZOLE 40MG TABLET PO SCH (16:38)
--- NOTE | 2018-08-07 19:29 | RAD REPORT ---
EXAM DESCRIPTION: USCarotid Artery Bilateral08/07/2018 7:05 pm CLINICAL HISTORY: Syncope COMPARISON: None FINDINGS: The velocity of the right internal carotid artery equals 101 cm/sec. The right ICA/CCA rat io 1.4 The velocity of the left internal carotid artery equals 71 cm/sec. The left ICA/CCA ratio 0.6 Plaque is not seen within the carotid arteries The vertebral arteries demonstrate antegrade flow IMPRESSION: Unremarkable exam NASCET criteria used. Mild 0-49% stenosis Moderate 50-69% stenosis Severe 70-99% stenosis
[2018-08-07] MEDS: ATORVASTATIN 40 MG TAB PO SCH (20:22)
[2018-08-08] MEDS: OXYCODONE HCL 5 MG TAB PO SCH ×5 (00:17→23:29)
[2018-08-08] MEDS: PANTOPRAZOLE 40MG TABLET PO SCH (05:06)
[2018-08-08] MEDS: GABAPENTIN 300 MG CAP PO SCH (08:09)
[2018-08-08] MEDS: clonazePAM 0.5 MG TAB PO SCH ×3 (08:09→19:46)
[2018-08-08] MEDS: HOME MED 1 EA UNK (Fluticasone/Salmeterol [Advair 250/50 Diskus*] 2 PUFF) IH SCH (08:12)
[2018-08-08] MEDS: LIDOCAINE 5% PATCH TOP SCH (10:49)
--- NOTE | 2018-08-08 14:58 | P.PN ---
Subjective Date of Service: 08/08/18 Chief Complaint: Syncope and collapse Patient seen and examined at bedside. No family at bedside. Chart reviewed and case discussed with nursing staff. Patient admitted for syncope and collapse. Patient states she is doing well now. Denies any chest pain, shortness of breath, dizziness, headache, vision changes, speech changes. Complaints of right hip and back pain. Review of Systems 10-point ROS is otherwise unremarkable Physical Examination - Vital Signs Temperature: 97.2 F Blood Pressure: 127/68 Pulse: 88 Respirations: 15 Pulse Ox (%): 100 - Physical Exam General: Alert, In no apparent distress, Oriented x3 HEENT: Atraumatic, PERRLA, EOMI Respiratory: Clear to auscultation bilaterally, Normal air movement Cardiovascular: Regular rate/rhythm, Normal S1 S2 Gastrointestinal: Normal bowel sounds, No tenderness Musculoskeletal: No clubbing, No swelling, No contractures, No warmth, Tenderness (On right lateral thigh and hip) Integumentary: Other (Bruising noted on right side and abdomen) Neurological: Normal speech, Normal tone, Normal affect Assessment And Plan - Current Problems (Diagnosis) (1) Syncope and collapse Current Visit: Yes Status: Acute Plan: Likely secondary to medication side effect versus cardiac related versus metabolic vs seizure -CT head negative for any acute abnormalities -continue monitoring on tele -no tele events noted at this time -Echo ordered, pending. -Carotid ultrasound negative for any hemodynamically significant stenosis. - may consider EEG if further episodes occur (2) Fall Current Visit: Yes Status: Acute Plan: - Trauma imaging negative for any acute fractures or abnormalities - abdominal CT positive for hairline fracture in L4-L5 - physical therapy consult Qualifiers: Encounter type: initial encounter Qualified Code(s): W19.XXXA - Unspecified fall, initial encounter (3) Hypernatremia Current Visit: Yes Status: Acute Plan: Likely secondary to dehydration. This could be the cause of the syncope/fall. - continues IV fluids, 1/2 normal saline (4) Crohns disease Current Visit: Yes Status: Chronic Plan: Stable at this time - Continue home medications Qualifiers: Gastrointestinal tract location: unspecified location Digestive disease complication type: without complication Qualified Code(s): K50.90 - Crohn's disease, unspecified, without complications (5) Degenerative disk disease Current Visit: No Status: Chronic Plan: -Patient currently has a morphine pump on and is on oxycodone at home. -We will continue these home medications Qualifiers: Spinal region: mid-cervical Mid-cervical spinal level: unspecified Qualified Code(s): M50.320 - Other cervical disc degeneration, mid-cervical region, unspecified level (6) Chronic back pain Current Visit: No Status: Chronic Qualifiers: Back pain location: back pain in unspecified location Back pain laterality : unspecified Qualified Code(s): M54.9 - Dorsalgia, unspecified; G89.29 - Other chronic pain (7) Asthma Current Visit: No Status: Chronic Qualifiers: Asthma severity: unspecified severity Asthma persistence: unspecified Asthma complication type: uncomplicated Qualified Code(s): J45.909 - Unspecified asthma, uncomplicated (8) Anemia Current Visit: Yes Status: Chronic Qualifiers: Anemia type: unspecified type Qualified Code(s): D64.9 - Anemia, unspecified (9) L4 vertebral fracture Current Visit: Yes Status: Acute Plan: - "Very Mild L4 vertebral fracture. - physical therapy consulted - trial of lidocaine patch to the right hip for symptomatic pain control - will consider an MRI if pain continues or worsens Qualifiers: Encounter type: initial encounter Fracture type: closed Fracture morphology: other fracture Qualified Code(s): S32.048A - Other fracture of fourth lumbar vertebra, initial encounter for closed fracture - Plan Continue to monitor on the floor. Pending echo. Possible discharge next 24 hr. Discharge Plan: Home Plan to discharge in: 24 Hours
[2018-08-08] MEDS: ATORVASTATIN 40 MG TAB PO SCH (19:47)
[2018-08-09] MEDS: PANTOPRAZOLE 40MG TABLET PO SCH (05:23)
[2018-08-09] MEDS: OXYCODONE HCL 5 MG TAB PO SCH ×3 (05:23→18:31)
[2018-08-09] MEDS: GABAPENTIN 300 MG CAP PO SCH (08:19)
[2018-08-09] MEDS: LIDOCAINE 5% PATCH TOP SCH (08:19)
[2018-08-09] MEDS: clonazePAM 0.5 MG TAB PO SCH ×3 (08:19→20:14)
[2018-08-09] MEDS: HOME MED 1 EA UNK (Fluticasone/Salmeterol [Advair 250/50 Diskus*] 2 PUFF) IH SCH (08:21)
[2018-08-09 10:08] LABS: Absolute Lymphocytes (CBC) 1.8 K/uL (0.7-4.9); Absolute Monocytes 0.6 K/uL (0.1-1.3); Absolute Neutrophil 4.1 K/uL (1.8-8.0); Basophils % 0.6 % (0-1.3); Eosinophils % 11.3 % (0-4.4); Hematocrit 32.9 % (36.0-45.0); Lymphocytes % 24.3 % (15.3-44.8); MPV 8.2 fL (7.6-11.3); Monocytes % 7.8 % (3.3-12.3); RBC Red Blood Cell Count 3.94 M/uL (3.86-4.86)
[2018-08-09 10:26] LABS: Potassium 4.2 mmol/L (3.5-5.1)
--- NOTE | 2018-08-09 10:39 | RAD REPORT ---
EXAM DESCRIPTION: CT - Chest Abdomen Pelvis W Cont - 08/06/2018 10:22 pm CLINICAL HISTORY: 48 years Female, back pain from fall COMPARISON: None. TECHNIQUE: 5 mm axial images of the chest, abdomen, pelvis were obtained with intravenous contrast. Coronal and sagittal reformatted images were obtained. This exam was performed according to our departmental dose-optimization program, which includes autom ated exposure control, adjustment of the mA and/or kV according to patient size and/or use of iterati ve reconstruction technique. INTRAVENOUS CONTRAST: Not documented. Please refer to medical record. FINDINGS: LUNG CREWS: There is no active infiltrates. There are no mass lesions. There is no pneumothorax. MEDIASTINAL STRUCTURES: The thoracic aorta is unremarkable. There is no pericardial effusion. There is no adenopathy. There is a small hiatal hernia. PLEURAL SPACE: Unremarkable. AXILLAE: No adenopathy. LIVER: Normal. SPLEEN: Normal. PANCREAS: Normal. GALLBLADDER: Normal. ADRENAL GLANDS: Normal. KIDNEYS: Normal. RETROPERITONEAL STRUCTURES: Normal. BOWEL SURVEY: There is increased stool throughout the colon. There is evidence of previous gastric sleeve procedure . URINARY BLADDER: Normal. UTERUS AND ADNEXA: Normal. An IUD is demonstrated to be in good position. PERITONEAL CAVITY: No free fluid. MEDIASTINAL STRUCTURES: Unremarkable. ABDOMINAL WALL: Small umbilical hernia containing fat. BONY STRUCTURES: There is a mild superior endplate fracture involving the L4 vertebral body. No other fractures are identified. There are severe degenerative disc disease at L5-S1. IMPRESSION: 1. Very mild superior endplate fracture involving the L4 vertebral body. 2. Increased stool throughout the colon. NOTIFICATION: Results were discussed with the ER doctor at 10:15 PM. Electronically signed by: Alcides Segura MD 08/06/2018 10:15 PM CDT Due to temporary technical issues with the PACS/Fluency reporting system, reports are being signed by the in house radiologist as a courtesy to ensure prompt reporting. The interpreting radiologist is f ully responsible for the content of the report.
[2018-08-09] MEDS ORDERED: PROAIR HFA IH PRN (14:00)
--- NOTE | 2018-08-09 17:45 | PN ---
Date of Progress Note: 08/09/2018 The patient states she feels somewhat better. Still has no collection of the day of the incident, wh ich on further questioning of her and her she remembers none of the incidence. Apparently, s he was found on the ground by her neighbor. She was then brought into the house, sitting in the yola r and when he came home, he found her on the floor, which was a couple of hours after neighbors have brought her in the house. She does not remember any of that. She says day before only thing differe nt is that she added some [id number] medication to her pain regimen in the form of anti-inflamm atories. She did have an increase in the pump dosage morphine a couple of days before this incident as far as her prior history of seizure. No definitive diagnosis was made apparently at that time. S he was not placed on medication. She still complains of hip pain, which she stated started before th is incident as far as the fracture of L4. This was known for a number of years, only ecchymotic area s just below the ribs on the left. We will therefore do an MRI to try and obtain a neurology consult and EEG prior to discharge to determine further etiology. The patient's says she is still n ot quite back to baseline as far as her orientation and her status mentally and physically is concern ed, although he does also state she has had some episodes where there has been decreased acuity sharyn red to the other times, possibly secondary to the medication as they have been adjusting her pump. S he states her colitis pain has improved considerably since being on the pump. Once these tests in co nsultation has been obtained, she probably could be discharged in a.m. HR/MODL Voice ID: [id number] Report ID: [id number]
[2018-08-09] MEDS: ATORVASTATIN 40 MG TAB PO SCH (20:14)
[2018-08-10] MEDS: OXYCODONE HCL 5 MG TAB PO SCH ×4 (00:02→17:46)
[2018-08-10] MEDS: PANTOPRAZOLE 40MG TABLET PO SCH (05:10)
[2018-08-10] MEDS: HOME MED 1 EA UNK (Fluticasone/Salmeterol [Advair 250/50 Diskus*] 2 PUFF) IH SCH (09:00)
[2018-08-10] MEDS: clonazePAM 0.5 MG TAB PO SCH ×3 (09:16→19:58)
[2018-08-10] MEDS: LIDOCAINE 5% PATCH TOP SCH (09:17)
[2018-08-10] MEDS: GABAPENTIN 300 MG CAP PO SCH (09:17)
[2018-08-10] MEDS: ATORVASTATIN 40 MG TAB PO SCH (19:58)
--- NOTE | 2018-08-11 02:44 | CON ---
Reason For Consultation: Consultation called because of possible seizure. History Of Present Illness: Ms. Cruz is a 48-year-old right-handed patient, who has a history of a seizure in 2015 with negative workup and who was found unresponsive at home by her . It is unclear how long she was unresponsive. The possibility that she may have had a seizure was considered and emergency services brought the patient to [facility]. She does have a morphine pain pump. It has been implanted for chronic pain, managed by Dr. Ojeda, and it is related to Crohn disease. She did recover from the seizure and at [facility] had a CT scan along with cervical spinal and trauma series, that was unremarkable. She did not get MRI because of a pump. The patient's event was not witnessed and therefore was unable to be described. The very first event in 2014 was reported as a generalized shaking seizure. Her laboratory studies in the emergency room essentially were unremarkable for complete blood count with differential and coagulation panel. Chemistries were remarkable for slightly elevated sodium and chloride and BUN suggestive of dehydration. Regarding potential risk factors for seizure, the patient said she has had a very difficult time sleeping and has not been able to get rest despite trying multiple sleep aids. She was told she requires evaluation for obstructive sleep apnea and there is also possibility of restless legs syndrome, but those have been adequately addressed. Past Medical History: As indicated including dyslipidemia, chronic pain, Crohn disease. Allergies: ROPINIROLE, DERMABOND, AND TRAMADOL. Home Medications: Albuterol nebulizer as needed, Dexilant 60 mg daily, Advair Diskus 2 puffs daily, Nasonex 2 puffs daily, Lipitor 60 mg at bedtime, gabapentin 800 mg daily, oxycodone 15 mg every 6 hours, Klonopin 0.5 mg 3 times daily. Past Surgical History: Pain pump implanted and gastric sleeve. Family History: Noncontributory. Social History: No alcohol or tobacco, but the patient does drink caffeinated beverages. Review of Systems: Aside from mentioned above, she has no recent fevers, chills, nausea, vomiting, myalgias, arthralgias, headache, weight change, rash. No psychiatric complaints. No gastrointestinal or genitourinary issues. Physical Examination: Vital Signs: Blood pressure 120/74, pulse 77, respiratory rate 16, temperature 97.8, oxygen saturation 97% on room air. General: Ms. Cruz is standing in her room, ready to be discharged. She is in no acute distress. HEENT: She is normocephalic, atraumatic. Sclerae anicteric. Oropharynx is pink and moist. Neck: Supple. Chest: Clear. Heart: Regular. Extremities: No clubbing, cyanosis, or edema. Neurologic: She is alert and oriented to person, place, situation, and time. She has no expressive or receptive aphasia. Cranial nerves II through XII are intact by examination. Motor Examination: She has intact strength in the upper and lower extremities with 5/5 rating proximally and distally. Sensory exam intact to light touch, temperature in the arms and legs. Coordination intact in the upper and lower extremities. Reflexes 2+ in upper and lower extremities. Gait normal stance, stride, and arm swing. Assessment: Ms. Cruz is a 48-year-old patient with history of one witnessed seizure and an unwitnessed syncopal event. She does have multiple risk factors for syncope including multiple medications that may be contributing factors including benzodiazepines and narcotics that have been used simultaneously. She also has had an extensive insomnia, likely related to restless legs syndrome and possible sleep apnea, and she has been dehydrated as reflected in blood work. She has no evidence of infection. Plan: 1. She may be discharged home. 2. She should be seen in Dr. Luong's office within 2 weeks and will have an ambulatory video EEG monitoring study done. 3. The patient is told to maintain an event diary. 4. We will hold off on any antiepileptic medications. 5. Okay to resume her current medications except perhaps cutting back the benzodiazepine and narcotic combination. SUSAN/JULIO CESAR Voice ID: [id number] Report ID: [id number]
--- NOTE | 2018-08-11 08:27 | ECHO ---
HEIGHT: 5 ft 5 in WEIGHT: 231 lb 0 oz DATE OF STUDY: 08/10/[address]: Rogelio Perez MD 2-DIMENSIONAL: YES M.MODE: YES DOPPLER: YES COLOR FLOW: YES TDS: NO PORTABLE: NO DEFINITY: NO BUBBLE STUDY: NO DIAGNOSIS: SYNCOPE CARDIAC HISTORY: CATHERIZATION: NO SURGERY: NO PROSTHETIC VALVE: NO PACEMAKER: NO MEASUREMENTS (cm) DIASTOLIC (NORMALS) SYSTOLIC (NORMALS) IVSd 1.0 (0.6-1.2) LA Diam 3.4 (1.9-4.0) LVEF 64% LVIDd 4.4 (3.5-5.7) LVIDs 2.8 (2.0-3.5) %FS 35% LVPWd 1.0 (0.6-1.2) Ao Diam 3.0 (2.0-3.7) 2 DIMENSIONAL ASSESSMENT: RIGHT ATRIUM: NORMAL LEFT ATRIUM: NORMAL RIGHT VENTRICLE: NORMAL LEFT VENTRICLE: NORMAL TRICUSPID VALVE: NORMAL MITRAL VALVE: NORMAL PULMONIC VALVE: NORMAL AORTIC VALVE: NORMAL PERICARDIAL EFFUSION: NONE AORTIC ROOT: NORMAL LEFT VENTRICULAR WALL MOTION: NORMAL DOPPLER/COLOR FLOW: TRACE MITRAL AND TRICUSPID REGURGITATION. NORMAL RIGHT VENTRICUALR SYSTOLIC PRESSURE. COMMENTS: TRACE MITRAL AND TRICUSPID REGURGITATION. NORMAL LEFT VENTRICULAR SIZE AND FUNCTION. NO WALL MOTION ABNORMALITY. NO EFFUSION. TECHNOLOGIST: Melody MENENDEZ
--- NOTE | 2018-08-11 08:41 | EEG ---
CHART: [id number] TEST ID#: [id number] DATE OF STUDY: 08/09/2018 THE EEG WAS RECORDED PORTABLE IN THE PATIENTS ROOM ON A 17 CHANNEL MACHINE. ELECTRODES WERE APPLIED IN THE USUAL MANNER USING THE INTERNATIONAL 10-20 SYSTEM. THE WAKING BACKGROUND RHYTHM IN THIS RECORD CONSISTS OF WELL DEVELOPED AND WELL ORGANIZED WAVES OF 10 HZ., MAXIMAL IN THE POSTERIOR HEAD REGIONS WHICH ATTENUATE NORMALLY WITH EYE OPENING. LOW-VOLTAGE 18-22 HZ ACTIVITY IS EXPRESSED IN THE FRONTAL REGIONS. THERE ARE NO FOCAL OR LATERALIZING FEATURES. NO EPILEPTIFORM ACTIVITY APPEARS. SLEEP OCCURRED NATURALLY. IN ADDITION NORMAL SLEEP PATTERNS ARE PRESENT. HYPERVENTILATION WAS NOT PERFORMED. PHOTIC STIMULATION PRODUCED FAIR DRIVING BILATERALLY. IMPRESSION: NORMAL EEG FOR THE AGE OF THE PATIENT IN [place], DROWSINESS AND SLEEP.
--- NOTE | 2018-08-11 19:27 | PN ---
Date of Progress Note: 08/10/2018 Subjective: The patient states she has had no further episodes. Still complains of hip pain. Case was discussed with her pain management and felt it was unlikely that the morphine pump had much do wi th that. However, I think accumulation of medication may have played a part. She is to see the neur ologist later in the day and it feels comfortable sending her home. She could be discharged. She ne eds to be followed up in the office. She was noted when I came in the room, was breath-holding and t herefore a sleep study will also be done. She has had some weight gain as well and thyroid will be o nce again re-evaluated. HR/MODL Voice ID: [id number] Report ID: [id number]
== END 2018-08-10 20:18 | disposition home or self-care (01) ==
LOC: ER 17:53 → 2ND 23:47
PROVIDERS: ADMIT Hospitalist; ATTEND Hospitalist
DX: R55 Syncope and collapse (principal); E87.0 Hyperosmolality and hypernatremia; K50.90 Crohn's disease, unspecified, without complications; M50.320 Other cervical disc degeneration, mid-cervical region, unspecified level; G89.29 Other chronic pain; M54.9 Dorsalgia, unspecified; J45.909 Unspecified asthma, uncomplicated; D64.9 Anemia, unspecified; S32.049A Unspecified fracture of fourth lumbar vertebra, initial encounter for closed fracture; W19.XXXA Unspecified fall, initial encounter; Y92.9 Unspecified place or not applicable; Z98.84 Bariatric surgery status
CPT/HCPCS: 36415; 70450; 71045; 71260; 72125; 72170; 74177; 80048; 80053; 80076; 80307; 80320; 81001; 83605; 83735; 83880; 84484; 85025; 85610; 93005; 93306; 93880; 95819; 96361; 96374; 97162; 99285; G0378; J2270; J2405; J3010; J7030; Q9967

== ENCOUNTER 2018-11-07 09:34 | Emergency (ER) | payer OTHER ==
--- OUTSIDE RECORDS SUMMARY | 2018-11-07 09:37 | XMS REPORT ---
:1970 [facility] Address [address] [place] [address] Dr. Cui [address] [place] [id number] Care Team Providers Name Role Phone Unavailable Unavailable Unavailable Problems This patient has no known problems. Allergies, Adverse Reactions, Alerts This patient has no known allergies or adverse reactions. Medications This patient has no known medications.
--- OUTSIDE RECORDS SUMMARY | 2018-11-07 09:37 | XMS REPORT | Continuity of Care Document ---
:1970 Author Organization [employer] Care Team Providers Name Role Phone sailsquare Unavailable Unavailable Problems Problem Status Onset Classification Date Comments Source Date Reported Low back pain1 Active 07/08/19 Problem 05/24/2018 Data migrated Mischer 15 from [employer] [facility] on 12/05/14. Lumbar Active 07/08/19 Problem 05/24/2018 Data migrated Mischer radiculopathy2 15 from [employer] [facility] on 12/05/14. Asthma Resolved Problem 05/24/2018 [facility] Neuro, LEYDA Hernández Chronic back Resolved Problem 05/24/2018 Mischer pain Neuro, LEYDA Hernández Crohn disease Resolved Problem 05/24/2018 [facility] Neuro, LEYDA Hernández Degenerative Resolved Problem 05/24/2018 [facility], LEYDA Hernández Medications No Data Provided for This Section Allergies, Adverse Reactions, Alerts Substance Category Reaction Severity Reaction Status Date Comments Source type Reported traMADol<hughes Assertion Drug Active Data Mischer p>1</sup> allergy 5 migrated Neuro from [employer] on 12/04/14. Originally documented as CONZIP. rOPINIRole< Assertion Drug Active Data Mischer sup>2</sup> allergy 5 migrated Neuro from [employer] on 12/04/14. Originally documented as REQUIP. Immunizations Immunization Date Site Status Last Comments Source Given Updated diphtheria/pertus Right completed Angel Mischer sis, acel/tetanus 3 deltoid Neuro, adult LEYDA Hernández Results No Data Provided for This Section Pathology Reports No Data Provided for This Section Diagnostic Reports Report Value Date Source Spine lumbar wo EXAM: MRI LUMBAR SPINE WITHOUT CONTRAST 08/12/2014 MAVIS Hernández contrast MRI DATE: 06/02/2014 at 1416 hours INDICATION: Radiculitis TECHNIQUE: Multiplanar, multisequence MRI of [...] with Modic type II degenerative endplate changes L5-S1 Spine cervical wo EXAM: MRI of the cervical spine without contrast 2014 MAVIS Hernández contrast MRI DATE: August 12, 2014 03:48:25 PM CLINICAL HISTORY: 723.4 Brachial Neuritis or Radiculitis [...] disc height with endplate osteophytes and small Schmorl 's nodes. 3 mm posterior disc osteophyte complex effaces the ventral CSF space mildly flattens the ventral surface o f the cord. Mild spinal canal stenosis. Thecal sac [...] CSF space without mass effect on the cord . The thecal sac measures 12 mm in midline [...] stenosis greatest on the right at C6-C7. Consultation Notes No Data Provided for This Section Discharge Summaries No Data Provided for This Section History and Physicals No Data Provided for This Section Vital Signs No Data Provided for This Section Encounters Location Location Encounter Encounter Reason Attending ADM DC Status Source Details Type Number For Provider Date Date Visit [facility] Diag [id number] Armando Witt 08/12 08/13 [facility]2014 [facility]NA Spine Phone [id number] 08/25 08/27 [facility] TM Message /2017 Neuro MNA Spine Phone [id number] 08/27 08/29 [facility] Message /2017 Neuro Outpatient [id number] [facility]OR[facility]/02 [facility] Spine Phone [id number] 09/02 09/04 [facility] Message /2017 Neuro MNA Spine Ambulatory [id number] Devora 09/02 09/02 [facility] Pre-Reg Buys /2017 Neuro Outpatient [id number] DEVORA 09/14 [facility]2017 [place] [facility]NA Spine Phone [id number] 09/14 09/16 [facility] Message /2017 Neuro MNA Spine Phone [id number] 09/14 09/16 [facility] Message /2017 Neuro [facility] Sp[facility] Ambulatory [id number] Armando Witt 09/14 09/14 [facility] Pre-Reg /2017 Neuro Outpatient [id number] DEVORA 09/28 [facility] /2018 Joseph MNA Phone [id number] 09/28 09/30 [facility] [place] /2017 [facility] [place] [facility] [place] [id number] 09/28 09/30 [facility] Message /2017 Neuro [facility] Sp[facility] Ambulatory [id number] Armando Witt 09/28 09/28 [facility] Pre-Reg /2017 Neuro MNA Spine Phone [id number] 10/09 10/11 [facility] Message /2017 Neuro MNA Spine Phone [id number] 10/09 10/11 [facility] Message /2017 Neuro Outpatient [id number] DEVORA 10/12 [facility]2017 [place] [facility] Ambulatory [id number] Armando Witt 10/12 10/12 [facility] Pre-Reg /2017 Neuro MNA Phone [id number] 11/03 11/05 [facility] [place]2017 Neuro [place] [facility] Procedures No Data Provided for This Section Assessment and Plan No Data Provided for This Section Plan of Care No Data Provided for This Section Social History Social History Date Source No data available for this 11/05/2017 [facility] section No data available for this 08/13/2014 LEYDA Hernández section Family History No Data Provided for This Section Advance Directives No Data Provided for This Section Functional Status No Data Provided for This Section
--- NOTE | 2018-11-07 11:07 | RAD REPORT ---
EXAM DESCRIPTION: RAD - Chest Single View - 11/07/2018 10:46 am CLINICAL HISTORY: Fall, chest pain COMPARISON: July 2018 TECHNIQUE: AP portable chest image was obtained 1017 hours . FINDINGS: Lungs are clear. Heart and vasculature are normal. No measurable pleural effusion and no p neumothorax. No gross rib deformity or other acute bone finding. No acute aortic findings suspected. IMPRESSION: No acute cardiopulmonary process. No significant interval change.
--- NOTE | 2018-11-07 11:09 | RAD REPORT ---
EXAM DESCRIPTION: RAD - C Spine Ap/Lat - 11/07/2018 10:46 am CLINICAL HISTORY: Fall, neck pain right arm pain COMPARISON: July 2007 FINDINGS: Cervical bodies are normal in height and alignment. No fracture or acute bony process seen . Mild C3-4 disc space narrowing present. More advanced degenerative disc space narrowing at C4-5, C5 -6 and C6-7. Posterior endplate spurring changes are present. Degenerative changes are advanced for a ge in have progressed significantly from 2007. There is no prevertebral soft tissue thickening or other suspicious soft tissue finding. IMPRESSION: Prominent for age cervical spine degenerative change progressive from 2008. No fracture or acute finding.
--- NOTE | 2018-11-07 11:11 | RAD REPORT ---
EXAM DESCRIPTION: RAD - Forearm Right - 11/07/2018 10:46 am CLINICAL HISTORY: Fall, right arm pain COMPARISON: None. FINDINGS: No fracture is identified. There is no dislocation or periosteal reaction noted. No foreign body or other soft tissue abnormality. IMPRESSION: Negative right forearm examination.
--- NOTE | 2018-11-07 11:11 | RAD REPORT ---
EXAM DESCRIPTION: RAD - Humerus Right - 11/07/2018 10:46 am CLINICAL HISTORY: Fall, arm pain COMPARISON: None. FINDINGS: No fracture is identified. There is no dislocation or periosteal reaction noted. No foreig n body or other soft tissue abnormality. AC joint is normal in appearance. IMPRESSION: Negative right humerus examination.
--- NOTE | 2018-11-07 11:15 | RAD REPORT ---
EXAM DESCRIPTION: RAD - Thoracic Spine Ap/Lat - 11/07/2018 10:51 am CLINICAL HISTORY: Fall, spine pain COMPARISON: July 2007 FINDINGS: AP & lateral views of the thoracic spine were obtained. Thoracic bodies are normal in heig ht and alignment. There are no acute or destructive bony processes seen. No paraspinal masses are karoline ntified. Minimal endplate degenerative changes are present not substantially different from compariso n. No significant or progressive disc space narrowing. IMPRESSION: Negative thoracic spine examination for acute or significant finding.
--- NOTE | 2018-11-07 11:17 | RAD REPORT ---
EXAM DESCRIPTION: RAD - Lumbar Spine 3 Views - 11/07/2018 10:53 am CLINICAL HISTORY: Fall, back pain COMPARISON: Lumbar spine June 2015. FINDINGS: A three-view lumbar spine examination was performed. Lumbar bodies are normal in height. M inimal left convex curvature could be due to positioning. No fracture or acute bony process seen. L5- S1 disc space narrowing present with degenerative gas. This is not new. This is advanced for age dise ase but is only very minimally progressive. Facet joint degenerative change in the lower lumbar spine is not substantially different. No pars defects identified. IMPRESSION: Negative lumbar spine examination for acute finding. Advanced for age degenerative disc disease at L5-S1 is only minimally progressive from 2016.
--- NOTE | 2018-11-07 11:18 | RAD REPORT ---
EXAM DESCRIPTION: RAD - Pelvis - 11/07/2018 10:46 am CLINICAL HISTORY: Fall, pelvic pain COMPARISON: July 2018 TECHNIQUE: AP imaging of the pelvis was obtained. FINDINGS: No fracture or acute finding of the pelvis. SI joints are within normal limits. No hip shobha nt or proximal femur abnormality. No significant change from comparison. IUD is still in place. IMPRESSION: Negative pelvis for acute finding
--- NOTE | 2018-11-07 11:18 | RAD REPORT ---
EXAM DESCRIPTION: RAD - Knee Right 3 View - 11/07/2018 10:46 am CLINICAL HISTORY: Fall, right knee pain COMPARISON: None. FINDINGS: No fracture, dislocation or periosteal reaction.No joint effusion seen. No joint space loretta rowing. No foreign body or other soft tissue abnormality. IMPRESSION: Negative right knee for acute bone or joint finding. Clinical concerns for internal derangement or occult bony injury could be further assessed with MR im aging.
--- NOTE | 2018-11-07 11:53 | EDPHYS ---
Physician Documentation [facility] Name: Erlinda Cruz Age: 48 yrs Sex: Female : 1970 Arrival Date: 11/07/2018 Time: 09:36 Bed 13 Private MD: ED Physician Obdulio Domínguez HPI: 11/07 10:05 This 48 yrs old Female presents to ER via Ambulatory with complaints of Fall cp Injury. 10:05 Details of fall: The patient fell from an upright position, while walking, and struck a cp tile surface. Onset: The symptoms/episode began/occurred this morning. Associated injuries: The patient sustained fall onto right side of body. Severity of symptoms: in the emergency department the symptoms pain. 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 [Active]; morphine pump [Active]; Fostoria 10-325 mg Oral tab [Active]; Oxycodone HCl Oral [Active]; - PMHx: 09:38 Asthma; chrons disease; Disc Degeneration; Fibromyalgia; rb1 - PSHx: 09:38 Tonsillectomy; Morphine pump; rb1 - Immunization history:: Adult Immunizations up to date. - Social history:: Smoking status: Patient/guardian denies using tobacco. - Ebola Screening: : Patient negative for fever greater than or equal to 101.5 degrees Fahrenheit, and additional compatible Ebola Virus Disease symptoms. ROS: 10:15 Eyes: Negative for injury, pain, redness, and discharge. cp 10:15 Constitutional: Negative for body aches, chills, fever, poor PO intake. 10:15 ENT: Negative for drainage from ear(s), ear pain, sore throat, difficulty swallowing, difficulty handling secretions. 10:15 Neck: Positive for tenderness. 10:15 Cardiovascular: Negative for chest pain. 10:15 Respiratory: Negative for cough, shortness of breath, wheezing. 10:15 Abdomen/GI: Negative for abdominal pain, nausea, vomiting, and diarrhea. 10:15 Back: Positive for pain at rest, pain with movement. 10:15 MS/extremity: Positive for pain, tenderness, of the right arm and right knee, Negative for decreased range of motion, deformity. 10:15 All other systems are negative. Exam: 10:25 Head/Face: Normocephalic, atraumatic. cp 10:25 Constitutional: The patient appears in no acute distress, alert, awake, non-diaphoretic, well developed, well nourished, uncomfortable. 10:25 Eyes: Periorbital structures: appear normal, Pupils: equal, round, and reactive to light and accomodation, Extraocular movements: intact throughout, Conjunctiva: Lids and lashes: appear normal, bilaterally. 10:25 ENT: External ear(s): no acute changes, Ear canal(s): are normal, clear, TM's: bulging, is not appreciated, bilaterally, dullness, erythema, is not appreciated, bilaterally, Nose: is normal, Mouth: Lips: moist, Oral mucosa: 10:25 Neck: C-spine: vertebral tenderness, is not appreciated, ROM/movement: pain, that is mild, with any movement, Meningeal signs: Kernig's sign is negative, nuchal rigidity, is not appreciated. 10:25 Chest/axilla: Inspection: Palpation: is normal, no crepitus, no tenderness. 10:25 Cardiovascular: Rate: normal, tachycardic, Rhythm: regular. 10:25 Respiratory: the patient does not display signs of respiratory distress, Respirations: normal, no use of accessory muscles, Breath sounds: are clear throughout, no decreased breath sounds. 10:25 Abdomen/GI: Inspection: abdomen appears normal, Bowel sounds: active, all quadrants, Palpation: abdomen is soft and non-tender, in all quadrants, rebound tenderness, is not appreciated, involuntary guarding, is not appreciated. 10:25 Back: pain, that is mild, ROM is Straight leg raises: of both lower extremities does not illicit pain. 10:25 Musculoskeletal/extremity: Extremities: grossly normal except: noted in the right arm: pain, tenderness, noted in the right knee: pain, tenderness, no evidence of decreased ROM, deformity. 10:25 Skin: no rash present. 10:25 Neuro: Orientation: to person, place \T\ time. Mentation: is normal. Vital Signs: 09:38 BP 123 / 81; Pulse 77; Resp 18; Temp 97.6(O); Pulse Ox 100% on R/A; Weight 99.79 kg rb1 (R); Height 5 ft. 5 in. (165.10 cm) (R); Pain 8/10; 10:38 rb1 11:00 BP 112 / 75; Pulse 65; Resp 16; Temp 97.9(TE); Pulse Ox 99% ; Pain 8/10; rb1 12:00 BP 104 / 73; Pulse 68; Resp 17; Temp 98.0(O); Pulse Ox 97% on R/A; Pain 8/10; rb1 09:38 Body Mass Index 36.61 (99.79 kg, 165.10 cm) rb1 10:38 Pt. went to X-ray rb1 MDM: 09:47 Patient medically screened. pepper 10:45 Differential diagnosis: contusion, fracture, multiple trauma, sprain, strain. 11:51 Data reviewed: vital signs, nurses notes, radiologic studies, plain films, and as a cp result, I will discharge patient. 11:51 Counseling: I had a detailed discussion with the patient and/or guardian regarding: the cp historical points, exam findings, and any diagnostic results supporting the discharge/admit diagnosis, radiology results, to return to the emergency department if symptoms worsen or persist or if there are any questions or concerns that arise at home. Response to treatment: the patient's symptoms have mildly improved after treatment, and as a result, I will. 11/07 09:55 Order name: XRAY Pelvis; Complete Time: 11:24 11/07 11:24 Interpretation: Report reviewed. 11/07 09:55 Order name: XRAY C Spine Ap/lat; Complete Time: 11:24 11/07 11:24 Interpretation: Report reviewed. 11/07 09:55 Order name: XRAY Thoracic Spine (Ap/lat); Complete Time: 11:24 11/07 11:24 Interpretation: Report reviewed. 11/07 09:55 Order name: XRAY Chest (1 view); Complete Time: 11:24 11/07 11:24 Interpretation: Report review. 11/07 09:55 Order name: XRAY Lumbar Spine (3 Views); Complete Time: 11:24 11/07 11:25 Interpretation: Report reviewed. 11/07 09:55 Order name: XRAY Humerus RIGHT; Complete Time: 11:24 cp 11/07 11:25 Interpretation: Report reviewed. 11/07 09:55 Order name: XRAY Forearm RIGHT; Complete Time: 11:24 cp 11/07 11:25 Interpretation: Reviewed. 11/07 10:35 Order name: XRAY Knee RIGHT 3 view; Complete Time: 11:24 cp 11/07 11:47 Order name: Splint - Wrist; Complete Time: 12:22 cp 11/07 11:47 Order name: Sling; Complete Time: 12:22 cp Administered Medications: 12:19 Drug: Fostoria 10 mg-325 mg 1 tabs Route: PO; rb1 12:20 Follow up: Response: Medication administered at discharge. rb1 Disposition: 11/08 07:18 Co-signature as Attending Physician, Obdulio Domínguez MD I agree with the assessment and pepper plan of care. Disposition: 11/07/18 11:52 Discharged to Home. Impression: Fall on same level from slipping, tripping and stumbling, Pain in arm, unspecified - right, Pain in right knee, Neck and back pain from fall. - Condition is Stable. - Discharge Instructions: Back Pain, Adult, Musculoskeletal Pain, Knee Pain, Neck Exercises, Back Exercises. - Prescriptions for ketoprofen 75 mg Oral capsule - take 1 capsule by ORAL route every 8 hours As needed as needed; 20 capsule. - Medication Reconciliation Form, Thank You Letter, Antibiotic Education, Prescription Opioid Use form. - Follow up: Private Physician; When: 2 - 3 days; Reason: Recheck today's complaints. - Problem is new. - Symptoms have improved. Signatures: Dispatcher [employer] Obdulio Bañuelos MD MD cha Page, Corey, PA PA cp Barber, Rebecca, RN RN rb1 Corrections: (The following items were deleted from the chart) 11/07 12:21 11:52 11/07/2018 11:52 Discharged to Home. Impression: Fall on same level from rb1 slipping, tripping and stumbling; Pain in arm, unspecified - right; Pain in right knee; Neck and back pain from fall. Condition is Stable. Forms are Medication Reconciliation Form, Thank You Letter, Antibiotic Education, Prescription Opioid Use. Follow up: Private Physician; When: 2 - 3 days; Reason: Recheck today's complaints. Problem is new. Symptoms have improved. cp
--- NOTE | 2018-11-07 11:53 | ER ---
Nurse's Notes [facility] Name: Erlinda Cruz Age: 48 yrs Sex: Female : 1970 Arrival Date: 11/07/2018 Time: 09:36 Bed 13 Private MD: Diagnosis: Fall on same level from slipping, tripping and stumbling;Pain in arm, unspecified-right;Pain in right knee;Neck and back pain from fall Presentation: 11/07 09:38 Presenting complaint: Patient states: She fell this morning landing on tile this rb1 morning. 09:38 Transition of care: patient was not received from another setting of care. Onset of rb1 symptoms was November 07, 2018. Risk Assessment: Do you want to hurt yourself or someone else? Patient reports no desire to harm self or others. Initial Sepsis Screen: Does the patient meet any 2 criteria? No. Patient's initial sepsis screen is negative. Does the patient have a suspected source of infection? No. Patient's initial sepsis screen is negative. Care prior to arrival: None. 09:38 Method Of Arrival: Ambulatory rb1 09:38 Acuity: EMMANUEL 3 rb1 Triage Assessment: 09:38 General: Appears uncomfortable, obese, Behavior is calm, cooperative, Denies fever. rb1 Pain: Complains of pain in neck, lower back, right arm and right knee Pain currently is 8 out of 10 on a pain scale. Quality of pain is described as aching, Pain began this morning. Neuro: Level of Consciousness is awake, alert, obeys commands, Oriented to person, place, time, situation. Cardiovascular: Capillary refill < 3 seconds is brisk in bilateral fingers. Respiratory: Airway is patent Respiratory effort is even, unlabored, Respiratory pattern is regular, symmetrical. GI: No signs and/or symptoms were reported involving the gastrointestinal system. : No signs and/or symptoms were reported regarding the genitourinary system. Derm: Skin is pink, warm \T\ dry. Musculoskeletal: Range of motion: intact in all extremities, Pt. ambulates with forearm crutches. 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 [Active]; morphine pump [Active]; Darfur 10-325 mg Oral tab [Active]; Oxycodone HCl Oral [Active]; - PMHx: 09:38 Asthma; chrons disease; Disc Degeneration; Fibromyalgia; rb1 - PSHx: 09:38 Tonsillectomy; Morphine pump; rb1 - Immunization history:: Adult Immunizations up to date. - Social history:: Smoking status: Patient/guardian denies using tobacco. - Ebola Screening: : Patient negative for fever greater than or equal to 101.5 degrees Fahrenheit, and additional compatible Ebola Virus Disease symptoms. Screenin:38 Abuse screen: Denies threats or abuse. Nutritional screening: No deficits noted. rb1 Tuberculosis screening: No symptoms or risk factors identified. Fall Risk Fall in past 12 months (25 points). Secondary diagnosis (15 points) impaired mobility, No IV (0 pts). Ambulatory Aid- Crutches/Cane/Walker (15 pts). Gait- Impaired (20 pts.). Mental Status- Oriented to own ability (0 pts). Total [place] Fall Scale indicates High Risk Score (45 or more points). Fall prevention measures have been instituted. Side Rails Up X 2 Placed Close to Nursing Station 1:1 Attendant Assigned Frequent Obs/Assessments Occuring Family Present and informed to notify staff if the need to leave the bedside As available patient and family educated on Fall Prevention Program and Strategies. Assessment: 09:38 General: See triage assessment. rb1 10:38 Reassessment: Pt. went to X-ray. rb1 11:22 Reassessment: Patient appears in no apparent distress at this time. Patient and/or rb1 family updated on plan of care and expected duration. Pain level reassessed. Patient is alert, oriented x 3, equal unlabored respirations, skin warm/dry/pink. at bedside. 12:20 Reassessment: Patient appears in no apparent distress at this time. No changes from rb1 previously documented assessment. Vital Signs: 09:38 BP 123 / 81; Pulse 77; Resp 18; Temp 97.6(O); Pulse Ox 100% on R/A; Weight 99.79 kg rb1 (R); Height 5 ft. 5 in. (165.10 cm) (R); Pain 8/10; 10:38 rb1 11:00 BP 112 / 75; Pulse 65; Resp 16; Temp 97.9(TE); Pulse Ox 99% ; Pain 8/10; rb1 12:00 BP 104 / 73; Pulse 68; Resp 17; Temp 98.0(O); Pulse Ox 97% on R/A; Pain 8/10; rb1 09:38 Body Mass Index 36.61 (99.79 kg, 165.10 cm) rb1 10:38 Pt. went to X-ray rb1 ED Course: 09:36 Patient arrived in ED. as 09:38 Selina Fischer, RN is Primary Nurse. rb1 09:38 Arm band placed on left wrist. rb1 09:38 Patient has correct armband on for positive identification. Bed in low position. Call rb1 light in reach. Side rails up X 1. Pulse ox on. NIBP on. Warm blanket given. Pillow given. 09:39 Obdulio Centeno PA is PHCP. cp 09:39 Obdulio Domínguez MD is Attending Physician. cp 09:50 Triage completed. rb1 10:49 XRAY Pelvis In Process Unspecified. EDMS 10:49 XRAY C Spine Ap/lat In Process Unspecified. EDMS 10:49 XRAY Thoracic Spine (Ap/lat) In Process Unspecified. EDMS 10:49 XRAY Chest (1 view) In Process Unspecified. EDMS 10:49 XRAY Lumbar Spine (3 Views) In Process Unspecified. EDMS 10:49 XRAY Humerus RIGHT In Process Unspecified. EDMS 10:49 XRAY Forearm RIGHT In Process Unspecified. EDMS 10:49 XRAY Knee RIGHT 3 view In Process Unspecified. EDMS 12:20 No provider procedures requiring assistance completed. Patient did not have IV access rb1 during this emergency room visit. Administered Medications: 12:19 Drug: Darfur 10 mg-325 mg 1 tabs Route: PO; rb1 12:20 Follow up: Response: Medication administered at discharge. rb1 Outcome: 11:52 Discharge ordered by . cp 12:20 Discharged to home ambulatory, with crutches, with significant other. rb1 12:20 Condition: stable 12:20 Discharge instructions given to patient, Instructed on discharge instructions, follow up and referral plans. medication usage, Demonstrated understanding of instructions, follow-up care, medications, Prescriptions given X 1. 12:21 Patient left the ED. rb1 Signatures: Dispatcher [employer] EDMS Kadie Monae Corey, PA PA cp Barber, Rebecca, RN RN rb1 Corrections: (The following items were deleted from the chart) 10:00 09:38 Musculoskeletal: Range of motion: intact in all extremities, Pt. ambulates with rb1 walking crutches. rb1
[2018-11-07] MEDS ORDERED: HYDROCODONE/APAP 10/325 TAB ONE (12:30)
== END 2018-11-07 12:21 | disposition home or self-care (01) ==
LOC: ER 09:34
DX: M54.9 Dorsalgia, unspecified (principal); M25.561 Pain in right knee; M79.601 Pain in right arm; W01.0XXA Fall on same level from slipping, tripping and stumbling without subsequent striking against object, initial encounter; Y93.89 Activity, other specified; Y92.9 Unspecified place or not applicable; J45.909 Unspecified asthma, uncomplicated; Z88.5 Allergy status to narcotic agent; Z88.8 Allergy status to other drugs, medicaments and biological substances; Z91.048 Other nonmedicinal substance allergy status
CPT/HCPCS: 71045; 72040; 72070; 72100; 72170; 99284

== ENCOUNTER 2019-05-28 02:35 | Emergency (ER) | payer OTHER, SELFPAY ==
[2019-05-28] MEDS ORDERED: MORPHINE 4 MG/ML SYR ONE (03:21)
[2019-05-28] MEDS ORDERED: ONDANSETRON 4 MG/2 ML VIAL ONE (03:21)
--- NOTE | 2019-05-28 04:42 | ER ---
Nurse's Notes [facility] Name: Erlinda Cruz Age: 48 yrs Sex: Female : 1970 Arrival Date: 05/28/2019 Time: 02:48 Bed 2 Private MD: Diagnosis: Fracture of first lumbar vertebra Presentation: 05/28 02:45 Presenting complaint: EMS states: complaining of low back pain, patient while walking rr5 in their kitchen area she slip landed her butt and heard a pop on her back. on palpation tender, swelling to touch, positive bruising on the spine area. complaining of low back pain when she moves. denies LOC. 02:45 Transition of care: patient was not received from another setting of care. Onset of rr5 symptoms was May 28, 2019 at 02:00. Risk Assessment: Do you want to hurt yourself or someone else? Patient reports no desire to harm self or others. Initial Sepsis Screen: Does the patient meet any 2 criteria? No. Patient's initial sepsis screen is negative. Does the patient have a suspected source of infection? No. Patient's initial sepsis screen is negative. Note known case of chronic back pain currently using morphine pump. Care prior to arrival: Medication(s) given: Tylenol, 1000 mg. 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 - Coronavirus screen:: The patient has NOT traveled to [place] in the past 14 days. Proceed with normal triage process as indicated. - Social history:: Smoking status: unknown Patient/guardian denies using alcohol, street drugs. - Ebola Screening: : Patient negative for fever greater than or equal to 101.5 degrees Fahrenheit, and additional compatible Ebola Virus Disease symptoms Patient denies exposure to infectious person Patient denies travel to an Ebola-affected area in the 21 days before illness onset. Screenin:06 Abuse screen: Denies threats or abuse. Denies injuries from another. Nutritional lp1 screening: No deficits noted. Tuberculosis screening: No symptoms or risk factors identified. Fall Risk Total [place] Fall Scale indicates High Risk Score (45 or more points). Fall prevention measures have been instituted. Family Present and informed to notify staff if the need to leave the bedside As available patient and family educated on Fall Prevention Program and Strategies. Assessment: 03:05 General: Appears uncomfortable, Behavior is appropriate for age. Pain: Complains of lp1 pain in lumbar area Pain currently is 9 out of 10 on a pain scale. Quality of pain is described as sharp, Aggravated by repositioning. Neuro: Level of Consciousness is awake, alert, obeys commands, Oriented to person, place, time, situation, Moves all extremities. Full function Intact. Cardiovascular: Patient's skin is warm and dry. Respiratory: Respiratory effort is even, unlabored. GI: No signs and/or symptoms were reported involving the gastrointestinal system. : No signs and/or symptoms were reported regarding the genitourinary system. EENT: No signs and/or symptoms were reported regarding the EENT system. Derm: Skin is pink, warm \T\ dry. Musculoskeletal: Circulation, motion, and sensation intact. 04:12 Reassessment: O2 at 88% while patient is asleep; NC at 2L applied, O2 at 95%. lp1 04:50 Reassessment: Patient appears in no apparent distress at this time. Patient is alert, rr5 oriented x 3, equal unlabored respirations, skin warm/dry/pink. ED provider at bedside explained the result and plan of care. 05:07 Reassessment: Patient appears in no apparent distress at this time. Patient is alert, rr5 oriented x 3, equal unlabored respirations, skin warm/dry/pink. discharge instruction given and explained without complaints made. assisted going to her car via wheelchair. Patient states symptoms have improved. Vital Signs: 02:58 BP 122 / 78; Pulse 84; Resp 19; Temp 98; Pulse Ox 97% ; Weight 95.25 kg; Height 5 ft. 5 rr5 in. (165.10 cm); Pain 7/10; 04:00 BP 99 / 65; Pulse 75; Resp 16; Pulse Ox 99% on 2 lpm NC; rr5 05:05 BP 115 / 70; Pulse 89; Resp 18; Temp 97.8; Pulse Ox 98% ; Pain 3/10; rr5 02:58 Body Mass Index 34.95 (95.25 kg, 165.10 cm) rr5 ED Course: 02:48 Patient arrived in ED. rr5 02:52 Baljit Rasmussen MD is Attending Physician. kdr 02:55 Triage completed. rr5 02:58 Arm band placed on right wrist. rr5 03:05 Melia Delcid RN is Primary Nurse. lp1 03:07 Patient has correct armband on for positive identification. Placed in gown. Bed in low lp1 position. Call light in reach. Pulse ox on. NIBP on. 03:20 Inserted saline lock: 22 gauge in right antecubital area, using aseptic technique. lp1 05:05 No provider procedures requiring assistance completed. IV discontinued, intact, rr5 bleeding controlled, No redness/swelling at site. Pressure dressing applied. Administered Medications: 03:25 Drug: morphine 4 mg Route: IVP; Site: right antecubital; lp1 04:25 Follow up: Response: No adverse reaction; Pain is decreased; RASS: Alert and Calm (0) rr5 03:25 Drug: Zofran 4 mg Route: IVP; Site: right antecubital; lp1 04:25 Follow up: Response: No adverse reaction rr5 04:45 Drug: [place] 10 mg-325 mg 1 tabs {Note: rass 0.} Route: PO; rr5 05:07 Follow up: Response: No adverse reaction; RASS: Alert and Calm (0) rr5 04:45 Drug: Flexeril 10 mg Route: PO; rr5 05:07 Follow up: Response: No adverse reaction rr5 Outcome: 04:41 Discharge ordered by . kdr 05:11 Discharged to home via wheelchair, with family. rr5 05:11 Condition: stable 05:11 Discharge instructions given to patient, family, Instructed on discharge instructions, follow up and referral plans. medication usage, Demonstrated understanding of instructions, follow-up care, medications, Prescriptions given X 2. 05:12 Patient left the ED. rr5 Signatures: Baljit Rasmussen MD MD [facility] Melia Delcid RN RN lp1 Baldo Lopez RN RN rr5
--- NOTE | 2019-05-28 04:42 | EDPHYS ---
Physician Documentation [facility] Name: Erlinda Cruz Age: 48 yrs Sex: Female : 1970 Arrival Date: 05/28/2019 Time: 02:48 Bed 2 Private MD: ED Physician Baljit Rasmussen HPI: 05/28 05:30 This 48 yrs old Female presents to ER via EMS with complaints of Low Back kdr Pain. 05:30 The patient presents with pain that is acute, and a crush injury, and decreased range kdr of motion, and an injury. The symptoms are located in the low back. The pain does not radiate. The problem was sustained during a fall, while standing, Slipped and fell backward upon her buttock. Onset: The symptoms/episode began/occurred acutely, just prior to arrival. Modifying factors: The patient symptoms are alleviated by nothing, the patient symptoms are aggravated by any movement. Associated signs and symptoms: The patient has no apparent associated signs or symptoms. Severity of symptoms: At their worst the symptoms were mild, moderate, just prior to arrival, in the emergency department the symptoms are unchanged. The patient has not experienced similar symptoms in the past. The patient has not recently seen a physician. 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 - Coronavirus screen:: The patient has NOT traveled to [place] in the past 14 days. Proceed with normal triage process as indicated. - Social history:: Smoking status: unknown Patient/guardian denies using alcohol, street drugs. - Ebola Screening: : Patient negative for fever greater than or equal to 101.5 degrees Fahrenheit, and additional compatible Ebola Virus Disease symptoms Patient denies exposure to infectious person Patient denies travel to an Ebola-affected area in the 21 days before illness onset. ROS: 05:30 Constitutional: Negative for fever, chills, and weight loss, Eyes: Negative for injury, kdr pain, redness, and discharge, ENT: Negative for injury, pain, and discharge, Neck: Negative for injury, pain, and swelling, Cardiovascular: Negative for chest pain, palpitations, and edema, Respiratory: Negative for shortness of breath, cough, wheezing, and pleuritic chest pain, Abdomen/GI: Negative for abdominal pain, nausea, vomiting, diarrhea, and constipation, : Negative for injury, bleeding, discharge, and swelling, MS/Extremity: Negative for injury and deformity, Skin: Negative for injury, rash, and discoloration, Neuro: Negative for headache, weakness, numbness, tingling, and seizure activity. Psych: Negative for depression, anxiety, suicide ideation, homicidal ideation, and hallucinations, Allergy/Immunology: Negative for hives, rash, and allergies, Endocrine: Negative for neck swelling, polydipsia, polyuria, polyphagia, and marked weight changes, Hematologic/Lymphatic: Negative for swollen nodes, abnormal bleeding, and unusual bruising. 05:30 Back: Positive for injury or acute deformity, decreased range of motion, pain at rest, pain with movement, of the lumbar area. Exam: 05:30 Constitutional: This is a well developed, well nourished patient who is awake, alert, kdr and in no acute distress. Head/Face: Normocephalic, atraumatic. Eyes: Pupils equal round and reactive to light, extra-ocular motions intact. Lids and lashes normal. Conjunctiva and sclera are non-icteric and not injected. Cornea within normal limits. Periorbital areas with no swelling, redness, or edema. Neck: Trachea midline, no thyromegaly or masses palpated, and no cervical lymphadenopathy. Supple, full range of motion without nuchal rigidity, or vertebral point tenderness. No Meningismus. Chest/axilla: Normal chest wall appearance and motion. Nontender with no deformity. No lesions are appreciated. Cardiovascular: Regular rate and rhythm with a normal S1 and S2. No gallops, murmurs, or rubs. Normal PMI, no JVD. No pulse deficits. Respiratory: Lungs have equal breath sounds bilaterally, clear to auscultation and percussion. No rales, rhonchi or wheezes noted. No increased work of breathing, no retractions or nasal flaring. Abdomen/GI: Soft, non-tender, with normal bowel sounds. No distension or tympany. No guarding or rebound. No evidence of tenderness throughout. Skin: Warm, dry with normal turgor. Normal color with no rashes, no lesions, and no evidence of cellulitis. MS/ Extremity: Pulses equal, no cyanosis. Neurovascular intact. Full, normal range of motion. Neuro: Awake and alert, GCS 15, oriented to person, place, time, and situation. Cranial nerves II-XII grossly intact. Motor strength 5/5 in all extremities. Sensory grossly intact. Cerebellar exam normal. Normal gait. Psych: Awake, alert, with orientation to person, place and time. Behavior, mood, and affect are within normal limits. 05:30 Back: pain, that is moderate, of the lumbar area, ROM is painful, normal spinal alignment noted, CVA tenderness, is absent, vertebral tenderness, is appreciated at T12, L1 and L2. Vital Signs: 02:58 BP 122 / 78; Pulse 84; Resp 19; Temp 98; Pulse Ox 97% ; Weight 95.25 kg; Height 5 ft. 5 rr5 in. (165.10 cm); Pain 7/10; 04:00 BP 99 / 65; Pulse 75; Resp 16; Pulse Ox 99% on 2 lpm NC; rr5 05:05 BP 115 / 70; Pulse 89; Resp 18; Temp 97.8; Pulse Ox 98% ; Pain 3/10; rr5 02:58 Body Mass Index 34.95 (95.25 kg, 165.10 cm) rr5 MDM: 04:41 Patient medically screened. kdr 05:30 Data reviewed: vital signs, nurses notes, lab test result(s), radiologic studies. kdr Counseling: I had a detailed discussion with the patient and/or guardian regarding: the historical points, exam findings, and any diagnostic results supporting the discharge/admit diagnosis, lab results, radiology results, the need for outpatient follow up. 05/28 03:12 Order name: CT Lumbar Spine Wo Con kdr Administered Medications: 03:25 Drug: morphine 4 mg Route: IVP; Site: right antecubital; lp1 04:25 Follow up: Response: No adverse reaction; Pain is decreased; RASS: Alert and Calm (0) rr5 03:25 Drug: Zofran 4 mg Route: IVP; Site: right antecubital; lp1 04:25 Follow up: Response: No adverse reaction rr5 04:45 Drug: [place] 10 mg-325 mg 1 tabs {Note: rass 0.} Route: PO; rr5 05:07 Follow up: Response: No adverse reaction; RASS: Alert and Calm (0) rr5 04:45 Drug: Flexeril 10 mg Route: PO; rr5 05:07 Follow up: Response: No adverse reaction rr5 Disposition: 05/28/19 04:41 Discharged to Home. Impression: Fracture of first lumbar vertebra. - Condition is Stable. - Discharge Instructions: Lumbar Fracture. - Prescriptions for Tylenol- Codeine #3 300-30 mg Oral Tablet - take 2 tablets by ORAL route every 6 hours As needed; 20 tablet. Cyclobenzaprine 10 mg Oral Tablet - take 1 tablet by ORAL route every 8 hours As needed; 15 tablet. - Medication Reconciliation Form, Thank You Letter, Prescription Opioid Use form. - Follow up: Private Physician; When: 2 - 3 days; Reason: If symptoms return, Further diagnostic work-up, Recheck today's complaints, Continuance of care, Re-evaluation by your physician. - Problem is new. - Symptoms have improved. Signatures: Dispatcher [employer] EDIL Baljit Rasmussen MD MD kdr Melia Delcid RN RN lp1 Baldo Lopez, RN RN rr5 Corrections: (The following items were deleted from the chart) 05:12 04:41 05/28/2019 04:41 Discharged to Home. Impression: Fracture of first lumbar rr5 vertebra. Condition is Stable. Forms are Medication Reconciliation Form, Thank You Letter, Antibiotic Education, Prescription Opioid Use. Follow up: Private Physician; When: 2 - 3 days; Reason: If symptoms return, Further diagnostic work-up, Recheck today's complaints, Continuance of care, Re-evaluation by your physician. Problem is new. Symptoms have improved. kdr
[2019-05-28] MEDS ORDERED: HYDROCODONE/APAP 10/325 TAB ONE (04:48)
[2019-05-28] MEDS ORDERED: CYCLOBENZAPRINE 10 MG TAB ONE (04:51)
[2019-05-28 05:33] VITALS: BP 115/70; TEMP 97.8; O2SAT 98
--- NOTE | 2019-05-30 11:41 | RAD REPORT ---
EXAM DESCRIPTION: CT - Spine Lumbar Wo Con - 05/28/2019 7:29 am CLINICAL HISTORY: The patient is 48 years old and is Female; pain s/p fall TECHNIQUE: Axial computed tomography images of the lumbar spine without intravenous contrast. Sagi ttal and coronal reformatted images were created and reviewed. This CT exam was performed using one or more of the following dose reduction techniques: automated exposure control, adjustment of the mA and/or kV according to patient size, and/or use of iterative reconstruction technique. COMPARISON: No relevant prior studies available. FINDINGS: VERTEBRAE: Compression deformity of the superior endplate of L1 is present. There is min imal height loss. There is no evidence of retropulsion. Remaining vertebral body heights are maintain ed. DISCS/SPINAL CANAL/NEURAL FORAMINA: Intervertebral disc space narrowing and vacuum disc phenomen on at L5-S1 is noted. SOFT TISSUES: The soft tissues are normal. TUBES, LINES AND DEVICES: A neural stimulator is noted. IMPRESSION: Minimal compression fracture of the superior endplate of L1. Electronically signed by: Claudia Pastrana MD 05/28/2019 4:25 AM WALLPAPER SCRAPER Due to temporary technical issues with the PACS/Fluency reporting system, reports are being signed by the in house radiologist as a courtesy to ensure prompt reporting. The interpreting radiologist is f ully responsible for the content of the report.
== END 2019-05-28 05:12 | disposition home or self-care (01) ==
LOC: ER 02:35
DX: S32.019A Unspecified fracture of first lumbar vertebra, initial encounter for closed fracture (principal); J45.909 Unspecified asthma, uncomplicated; G89.29 Other chronic pain; W01.0XXA Fall on same level from slipping, tripping and stumbling without subsequent striking against object, initial encounter; Y93.9 Activity, unspecified; Y92.010 Kitchen of single-family (private) house as the place of occurrence of the external cause; Z88.6 Allergy status to analgesic agent; Z88.8 Allergy status to other drugs, medicaments and biological substances
CPT/HCPCS: 72131; 96375; 96374; 99284; J2405

== ENCOUNTER 2019-11-30 23:17 | Emergency (ER) | payer OTHER ==
--- OUTSIDE RECORDS SUMMARY | 2019-11-30 23:19 | XMS REPORT | Continuity of Care Document ---
:1970 Author Organization [facility] [place] Care Team Providers Name Role Phone [employer] Unavailable Un available Problems Problem Status Onset Classification Date Comments Sourc e Date Reported Low back pain Active 07/08/19 Problem 05/24/2018 Data Misch er (disorder) 15 migrated Neuro from [employer] on 12/05/14. Lumbar Active 07/08/19 Problem 05/24/2018 Data Mischer radiculopathy 15 migrated Neuro (disorder) from [employer] on 12/05/14. Asthma (disorder) Resolved Problem 05/24/2018 M ischer Neuro, LEYDA Hernández Chronic back pain Resolved Problem 05/24/2018 M ischer (disorder) Neuro, OPIIsrrael Hernández Crohn's disease Resolved Problem 05/24/2018 Mis forrest (disorder) Neuro, OPIIsrrael Hernández Degeneration of Resolved Problem 05/24/2018 Mis forrest intervertebral Neuro , disc (disorder) OPID Edgar Medications No Data Provided for This Section Allergies, Adverse Reactions, Alerts Substance Category Reaction Severity Reaction Status Date Comments S ource type Reported traMADol<hughes Assertion Drug Active Data Mischer p>1</sup> allergy 5 migrated Neuro from [employer] on 12/04/14. Originally documented as CONZIP. rOPINIRole< Assertion Drug Active Data Mischer sup>2</sup> allergy 5 migrated Zabrina ro from [employer] on 12/04/14. Originally documented as REQUIP. Immunizations Immunization Date Site Status Last Comments Source Given Updated diphtheria/pertus Right completed Angel phan sis, acel/tetanus 3 deltoid Ne uro, adult LEYDA Hernández Results No Data Provided for This Section Pathology Reports No Data Provided for This Section Diagnostic Reports Report Value Date Source Spine lumbar wo EXAM: MRI LUMBAR SPINE WITHOUT CONTRAST 08/13/19 15 LEYDA Hernández contrast MRI DATE: 06/02/2014 at 1416 hours INDICATION: Radiculitis TECHNIQUE: Multiplanar, mult isequence MRI of the lumbar spine without intravenous contrast administration. COMPARISON: No prior studies are available for c omparison. DISCUSSION: The lumbar spine demonstrate s normal alignment. Vertebral bodies are normal in height and signal intensity. No osseous lesions are identified. The conus medullaris is norm al is size, signal intensity, and position, terminating at the L1-L2 level. Evaluation of the individual levels demonstrates : L1/L2: No disc herniation, s colby canal stenosis, or neural foraminal narrowing. L2/L3: No disc herniation, s colby canal stenosis, or neural foraminal narrowing. L3/L4: No disc herniation, s colby canal stenosis, or neural foraminal narrowing. There are mild degenerative changes of the bilateral facets with thickening of the ligamentum flavum. L4/L5: There is a mild diffu se 3 mm disc bulge and mild disc [...] Diffuse disc bulge with Modic type II degener ative endplate changes L5-S1 Spine cervical wo EXAM: MRI of the cervical spine without contra st 08/12/2014 LEYDA Hernández contrast MRI DATE: August 12, 2014 03:48:25 PM CLINICAL HISTORY: 723.4 Brachial Neuritis or R adiculitis Nos COMPARISON: CT cervical spine without contrast A pri 2012 TECHNIQUE: Sagittal and axial unenhanced images of the cerv ical spine were obtained. . FINDINGS: The visualized portion of th e posterior fossa is unremarkable. The craniocervical junction and C1-C2 articulation are unremarkable. The cervical vertebral bodies are normal in height. Multilevel degener ative changes are noted thro ughout the cervical spine. Minimal retrolisthesis of C4 on C5. Minimal anterolisthesis of C5 on C6, C6 on C7 and C7 on T1. C2-C3: No significant spinal canal or neural for aminal stenosis. C3-C4: Mild loss of disc hei ght with endplate osteophytes. 2 mm posterior disc osteophyte complex partially effaces the ventral CSF space without mass effect on the cord. Borderline narrowing the spinal canal. The thecal sac measu res 10 mm in midline AP dimension. No [...] foraminal stenosis. C5-C6: Severe loss of disc h eight with endplate osteophytes and small Schmorl's nodes. 3 mm posterior disc osteophyte complex effaces the ventral CSF space mildly flattens the ventral surface o f the cord. Mild spinal morgan l stenosis. Thecal sac measures 9 mm in midline AP dimension. Bilateral uncovertebral hypertrophy. Mild bilateral facet hypertrophy. Mild right neural foraminal stenosis. C6-C7: Moderate to severe lo ss of disc height with endplate osteophytes. 3 mm posterior disc osteophyte complex effaces the ventral CSF space and minimally flattens surface the cord. Borderline to mild spinal canal stenosis. The t hecal sac measures 9 to 10 mm in midline AP dimension. Right greater than left uncovertebral hypertrophy. Mild bilateral facet hypertrophy. Moderate right neural foraminal stenosis. C7-T1: Severe loss of disc h eight with endplate osteophytes and Schmorl's nodes. 2.5 mm posterior disc osteophyte complex partially effaces the ventral CSF space without mass effect on the cord . The thecal sac measures 12 mm in midline AP dimension. No significant spinal canal stenosis. Right greater than left uncovertebral hypertrophy. Mild right neural foraminal stenosis. Stable mild chronic superior endplate compressio n deformity of T4. The cervical cord is normal in signal intensity. No intradural lesions. The paraspinous soft tissues are unremarkable. IMPRESSION: Multilevel degen erative change with loss of disc height and [...] Location Encounter Encounter Reason Attending ADM DC Stat us Source Details Type Number For Provider Date Date Visit [facility] Outpt Diag [id number] Armando Witt 08/12 08/13 [facility]2014 [facility] [place] [facility] Phone [id number] 08/25 08/27 [facility] Message /2017 Neuro [facility] Spine Phone [id number] 08/27 08/29 [facility] Message /2017 Neuro Outpatient [id number] [facility] [place] [facility] Phone [id number] 09/02 09/04 [facility] Message /2017 [facility] Ambulatory [id number] Devora 09/02 09/02 [facility] Pre-Reg Buys /2017 Neuro Outpatient [id number] DEVORA 09/14 [facility]2017 [place] [facility] Sp[facility] Phone [id number] 09/14 09/16 [facility] Message /2017 [facility] Phone [id number] 09/14 09/16 [facility] Message /2017 [facility] [id number] Armando Witt 09/14 09/14 [facility] Pre-Reg /2017 Neuro Outpatient [id number] DEVORA 09/28 [facility]2017 [place] [facility] Phone [id number] 09/28 09/30 [facility] [place] [facility] [facility] [place] [id number] 09/28 09/30 [facility] Message /2017 [facility] Ambulatory [id number] Armando Witt 09/28 09/28 [facility] Pre-Reg /2017 [facility] Sp[facility] Phone [id number] 10/09 10/11 [facility] [place]2017 [place] [facility] Phone [id number] 10/09 [facility] [id number] [facility]ORA 10/12 [facility]2017 [place] [facility] [id number] Armando Witt 10/12 10/12 [facility] Pre-Reg /2017 Neuro MNA Phone [id number] 11/03 11/05 [facility] [place]2017 [place] [facility] [place] No Data Provided for This Section Assessment and Plan No Data Provided for This Section Plan of Care No Data Provided for This Section Social History Social History Date Source No data available for this 11/05/2017 [facility] [place] No data available for this 08/13/2014 LEYDA Raymundo ond section Family History No Data Provided for This Section Advance Directives No Data Provided for This Section Functional Status No Data Provided for This Section
--- OUTSIDE RECORDS SUMMARY | 2019-11-30 23:19 | XMS REPORT | Clinical Summary ---
:1970 Author Organization [facility] Address [address] [place] [address] Care Team Providers Name Role Phone Unavailable Primary Care Provider Unavailable Allergies Not on File Medications Not on file Active Problems Not on file Social History Tobacco Use Types Packs/Day Years Used Date Never Assessed Sex Assigned at Date Recorded Not on file Job Start Date Occupation Industry Not on file Not on file Not on file Travel History Travel Start Travel End No recent travel history available. 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
--- OUTSIDE RECORDS SUMMARY | 2019-11-30 23:19 | XMS REPORT | Continuity of Care Document ---
:1970 Author Organization [facility] t Address [address] [place] [address] Care Team Providers Name Role Phone Edvin Zaragoza MD Attending Clinician Doctor Unassigned, Name Attending Clinician Unavailable Pob, Lab Main Attending Clinician Unavailable Buys Attending Clinician Ailin Witt Attending Clinician Edvin Zaragoza MD Admitting Clinician Payers Payer Name Policy Type Policy Number Effective Date Expiration Date S ource Problems Condition Condition Condition Status Onset Resolution Last Treating Co mments Source Name Details Category Date Date Treatment Clinician Date Low back Problem Active 2018-05-24 Mem oria pain 3-27 15:38:35 l (disorder) Low back 00:00: He rmann pain 00 (disorder) Active 07/07/2014 Problem 05/24/2018 Data migrated from [employer] on 12/05/14. [facility] Lumbar Problem Active 2018-05-24 Memor ia radiculopa 3- 15:38:35 l thy Lumbar 00:00: [place] (disorder) radiculopa 00 thy (disorder) Active 07/07/2014 Problem 05/24/2018 Data migrated from [employer] on 12/05/14. [facility] Asthma Problem Resolve 2018-05-24 Sunday zaid (disorder) d 15:38:35 l Asthma [place] (disorder) Resolved Problem 05/24/2018 MAVIS Osborne Chronic Problem Resolve 2018-05-24 Mem oria back pain d 15:38:35 l (disorder) Chronic [place] back pain (disorder) Resolved Problem 05/24/2018 MAVIS Osborne Crohn's Problem Resolve 2018-05-24 Mem oria disease d 15:38:35 l (disorder) Crohn's Her [place] disease (disorder) Resolved Problem 05/24/2018 MAVIS Osborne Degenerati Problem Resolve 2018-05-24 Memoria on of d 15:38:35 l interverte Thomas n bral disc Degenerati (disorder) on of interverte bral disc (disorder) Resolved Problem 05/24/2018 MAVIS Osborne Allergies, Adverse Reactions, Alerts Allergy Allergy Status Severity Reaction(s) Onset Inactive Treating Comm ents Source Name Type Date Date Clinician tramadol DA [facility]10 [place] [facility]: [facility] ropiniro DA [facility] le 05[facility]10 [place] 00:00: [facility] DERMABON DA Active [facility] D 05-10 [place] 00:00: [facility] traMADol traMADol Active Memori a <sup>1</ <sup>1</ 3-27 l sup> sup> 05:00: [place] 00 rOPINIRo rOPINIRo Active Memori a le<sup>2 le<sup>2 3-27 l </sup> </sup> 05:00: [place] 00 Social History Social Habit Start Date Stop Date Quantity Comments Source Sex Assigned At [facility] ethodist Social History 2014-08-13 2014-08-13 [facility] 04:59:00 04:59:00 Medications This patient has no known medications. Procedures This patient has no known procedures. Plan of Care Planned Activity Planned Date Details Comments Source Future Scheduled 2019-12-13 INFLUENZA VACCINE [place] [facility] 00:00:00 [code = INFLUENZA VACCINE] Future Scheduled 1993 Screening for [facility] thodist Test 00:00:00 malignant neoplasm of cervix (procedure) [code = 463045229] Encounters Start End Encounter Admission Attending Care Care Encounter Source Date/Time Date/Time Type Type Clinicians Facility Department ID 2019-06-29 2019-06-29 [facility] [id number] 07:46:00 14:54:00 Encounter Mehrdad Lema [id number] [place] [id number] Surgical [id number] [place] 071 2019-06-29 2019-06-29 Orders Doctor MARVIN [id number] 00:00:00 00:00:00 Only Unassigned, ARIEL [id number] [place] [facility] [id number] 2019-06-28 2019-06-28 Group President Lexa gAuilar [facility] [id number] 14:18:06 14:33:06 Visit Lab Holden Lema [id number] [place] [id number] Professio [id number] [address] 2017-11-03 2017-11-04 Outpatient MHMISCHER MHMISCHER [id number] 17:02:00 23:59:59 09 2017-10-12 2017-10-12 Outpatient Buys, MHMISCHER MHMISCHER [id number] 14:15:00 14:15:00 [place] 2017-10-09 2017-10-10 Outpatient MHMISCHER MHMISCHER [id number] 13:46:00 23:59:59 08 2017-10-09 2017-10-10 Outpatient MHMISCHER MHMISCHER [id number] 13:39:00 23:59:59 07 2017-09-28 2017-09-29 Outpatient MHMISCHER MHMISCHER [id number] 10:02:00 23:59:59 06 2017-09-28 2017-09-29 Outpatient MHMISCHER MHMISCHER [id number] 10:01:00 23:59:59 05 2017-09-28 2017-09-28 Outpatient Buys, MHMISCHER MHMISCHER [id number] 13:30:00 13:30:00 Devora 2017-09-14 2017-09-15 Outpatient MHMISCHER MHMISCHER [id number] 11:27:00 23:59:59 2017-09-14 2017-09-15 Outpatient MHMISCHER MHMISCHER [id number] 11:23:00 23:59:59 2017-09-14 2017-09-14 Outpatient Buys, MHMISCHER MHMISCHER [id number] 14:15:00 14:15:00 Devora 2017-09-02 2017-09-03 Outpatient MHMISCHER MHMISCHER [id number] 12:27:00 23:59:59 2017-09-02 2017-09-02 Outpatient Buys, MHMISCHER MHMISCHER [id number] 15:20:00 15:20:00 Devora 2017-08-27 2017-08-28 Outpatient MHMISCHER MHMISCHER [id number] 12:53:00 23:59:59 2017-08-25 2017-08-26 Outpatient MHMISCHER MHMISCHER [id number] 10:48:00 23:59:59 2014-08-12 2014-08-12 Outpatient Armando Witt MAVISIE MHIE [id number] 14:07:00 23:59:00 Hwan 00 Results Test Description Test Time Test Comments Results Result Comments Source HCG SERUM QUAL 2019-05-10 11:22:00 Test Item Value Reference Range Interpretation Comme nts HCG SERUM QUAL (test code = HCGQL) NEGATIVE NEGATIVE DATE OF LAST MENSTRUAL PERIOD: 04/13/11COMMENTS: HAS A RING, EVERYTHING IS STILL IN TACT THO
--- NOTE | 2019-12-01 02:03 | EDPHYS ---
Physician Documentation [facility] Name: Erlinda Cruz Age: 49 yrs Sex: Female : 1970 Arrival Date: 11/30/2019 Time: 23:19 Bed 4 Private MD: ED Physician Buzz New HPI: 11/30 00:56 This 49 yrs old Female presents to ER via Wheelchair with complaints of Fall jr8 Injury. 00:56 Details of fall: The patient fell from seated position, toilet . Onset: The jr8 symptoms/episode began/occurred acutely, today. Associated injuries: The patient sustained injury to the head, neck injury. Severity of symptoms: At their worst the symptoms were mild, in the emergency department the symptoms are unchanged. The patient has experienced a previous episode. The patient has not recently seen a physician. Patient stated that she fell asleep on the toilet. Fell forward hitting head and neck. Pain to head and neck now . 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 N/A - control method, IUd mirena rr5 Historical: - Allergies: 11/29 23:48 dermabond; lp1 23:48 Requip; lp1 23:48 Tramadol HCl; lp1 23:48 ropinirole HCl; lp1 - Home Meds: 11/30 00:40 Advair Diskus 250-50 mcg/dose Inhl dsdv 1 puff 2 times per day [Active]; Nasonex Nasal rr5 [Active]; morphine pump [Active]; Oxycodone HCl Oral [Active]; Clonazepam Oral [Active]; Dexilant Oral [Active]; - PMHx: 11/29 23:48 Asthma; chronic back pain; chrons disease; Disc Degeneration; Fibromyalgia; lp1 - PSHx: 23:48 radius surgery- right arm; gastric sleeve; lp1 - Immunization history:: Adult Immunizations up to date, Last tetanus immunization: unknown. - Social history:: Smoking status: Patient denies any tobacco usage or history of. ROS: 11/30 00:56 Eyes: Negative for injury, pain, redness, and discharge, ENT: Negative for injury, jr8 pain, and discharge, Cardiovascular: Negative for chest pain, palpitations, and edema, Respiratory: Negative for shortness of breath, cough, wheezing, and pleuritic chest pain, Abdomen/GI: Negative for abdominal pain, nausea, vomiting, diarrhea, and constipation, Back: Negative for injury and pain, MS/Extremity: Negative for injury and deformity, Skin: Negative for injury, rash, and discoloration. Neck: Positive for pain with movement, pain at rest, Negative for tenderness, bony tenderness. Neuro: Positive for headache. Exam: 00:56 Eyes: Pupils equal round and reactive to light, extra-ocular motions intact. Lids and jr8 lashes normal. Conjunctiva and sclera are non-icteric and not injected. Cornea within normal limits. Periorbital areas with no swelling, redness, or edema. ENT: Nares patent. No nasal discharge, no septal abnormalities noted. Tympanic membranes are normal and external auditory canals are clear. Oropharynx with no redness, swelling, or masses, exudates, or evidence of obstruction, uvula midline. Mucous membranes moist. Neck: Trachea midline, no thyromegaly or masses palpated, and no cervical lymphadenopathy. Supple, full range of motion with mild pain upon motion. No nuchal rigidity, or vertebral point tenderness. No Meningismus. Cardiovascular: Regular rate and rhythm with a normal S1 and S2. No gallops, murmurs, or rubs. Normal PMI, no JVD. No pulse deficits. Respiratory: Lungs have equal breath sounds bilaterally, clear to auscultation and percussion. No rales, rhonchi or wheezes noted. No increased work of breathing, no retractions or nasal flaring. Abdomen/GI: Soft, non-tender, with normal bowel sounds. No distension or tympany. No guarding or rebound. No evidence of tenderness throughout. Back: No spinal tenderness. No costovertebral tenderness. Full range of motion. Skin: Warm, dry with normal turgor. Normal color with no rashes, no lesions, and no evidence of cellulitis. MS/ Extremity: Pulses equal, no cyanosis. Neurovascular intact. Full, normal range of motion. Neuro: Awake and alert, GCS 15, oriented to person, place, time, and situation. Cranial nerves II-XII grossly intact. Motor strength 5/5 in all extremities. Sensory grossly intact. Cerebellar exam normal. Normal gait. 00:56 Head/face: Noted is hematoma, that is mild, of the forehead. Vital Signs: 11/29 23:45 BP 124 / 75; Pulse 80; Resp 18; Temp 98.5; Pulse Ox 97% ; Weight 86.18 kg; Height 5 ft. rr5 5 in. (165.10 cm); Pain 8/10; 11/30 00:37 BP 126 / 82; Pulse 86; Resp 17; Pulse Ox 99% ; rr5 01:15 BP 133 / 89; Pulse 85; Resp 17; Pulse Ox 100% ; rr5 02:19 BP 127 / 62; Pulse 80; Resp 16; Pulse Ox 100% ; rr5 11/29 23:45 Body Mass Index 31.62 (86.18 kg, 165.10 cm) rr5 [place] Coma Score: 00:37 Eye Response: spontaneous(4). Verbal Response: oriented(5). Motor Response: obeys rr5 commands(6). Total: 15. 02:20 Eye Response: spontaneous(4). Verbal Response: oriented(5). Motor Response: obeys rr5 commands(6). Total: 15. Trauma Score (Adult): 00:37 Eye Response: spontaneous(1); Verbal Response: oriented(1); Motor Response: obeys rr5 commands(2); Systolic BP: > 89 mm Hg(4); Respiratory Rate: 10 to 29 per min(4); Barbara Score: 15; Trauma Score: 12 02:20 Eye Response: spontaneous(1); Verbal Response: oriented(1); Motor Response: obeys rr5 commands(2); Systolic BP: > 89 mm Hg(4); Respiratory Rate: 10 to 29 per min(4); [place] Score: 15; Trauma Score: 12 MDM: 00:00 Patient medically screened. jr8 02:00 Data reviewed: vital signs, nurses notes, radiologic studies, CT scan. Data jr8 interpreted: Pulse oximetry: on room air is 99 %. Interpretation: normal. Counseling: I had a detailed discussion with the patient and/or guardian regarding: the historical points, exam findings, and any diagnostic results supporting the discharge/admit diagnosis, radiology results, the need for outpatient follow up, a family practitioner, to return to the emergency department if symptoms worsen or persist or if there are any questions or concerns that arise at home. 11/30 00:20 Order name: CT Head C Spine jr8 Administered Medications: No medications were administered Disposition: 06:11 Co-signature as Attending Physician, Buzz New MD. mh7 Disposition: 12/01/19 02:02 Discharged to Home. Impression: Superficial injury of head. - Condition is Stable. - Discharge Instructions: Head Injury, Adult, Hematoma. - Medication Reconciliation Form, Thank You Letter, Antibiotic Education, Prescription Opioid Use form. - Follow up: Private Physician; When: As needed; Reason: Recheck today's complaints, Continuance of care, Re-evaluation by your physician. - Problem is new. - Symptoms have improved. Signatures: Dispatcher [employer] EDMS Melia Delcid RN RN lp1 Surinder Davis PA PA jr8 Baldo Lopez RN RN rr5 Buzz New MD MD mh7 Corrections: (The following items were deleted from the chart) 02:23 02:02 12/01/2019 02:02 Discharged to Home. Impression: Superficial injury of head. rr5 Condition is Stable. Forms are Medication Reconciliation Form, Thank You Letter, Antibiotic Education, Prescription Opioid Use. Follow up: Private Physician; When: As needed; Reason: Recheck today's complaints, Continuance of care, Re-evaluation by your physician. Problem is new. Symptoms have improved. jr8
--- NOTE | 2019-12-01 02:03 | ER ---
Nurse's Notes [facility] Name: Erlinda Cruz Age: 49 yrs Sex: Female : 1970 Arrival Date: 11/30/2019 Time: 23:19 Bed 4 Private MD: Diagnosis: Superficial injury of head Presentation: 11/29 23:45 Chief complaint: Patient states: Patient was sitting on the toilet, fell asleep and lp1 fell forward off of toilet; States "hearing something crack"; Pain to right arm, states recent radius surgery in June 2019; abrasion to forehead, complaint of neck pain. Care prior to arrival: None. Mechanism of Injury: Fall toilet. 23:45 Acuity: EMMANUEL 3 lp1 23:45 Method Of Arrival: Wheelchair lp1 23:45 Coronavirus screen: Client denies travel out of the [place] in the last 14 days. At this rr5 time, the client does not indicate any symptoms associated with coronavirus-19. Ebola Screen: Patient negative for fever greater than or equal to 101.5 degrees Fahrenheit, and additional compatible Ebola Virus Disease symptoms Patient denies exposure to infectious person. Patient denies travel to an Ebola-affected area in the 21 days before illness onset. 23:45 Initial Sepsis Screen: Does the patient meet any 2 criteria? No. Patient's initial rr5 sepsis screen is negative. Does the patient have a suspected source of infection? No. Patient's initial sepsis screen is negative. Risk Assessment: Do you want to hurt yourself or someone else? Patient reports no desire to harm self or others. Onset of symptoms was November 30, 2019. 23:45 Trauma event details: Injury occurred in the [facility], Injury occurred: at rr5 home. Injury occurred: November 30, 2019. 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 LMP N/A - control method, IUd mirena rr5 Trauma Activation: Not Applicable Physician: ED Physician; Name: ; Notified At: ; Arrived At: Physician: General Surgeon; Name: ; Notified At: ; Arrived At: Physician: Radiology; Name: ; Notified At: ; Arrived At: Physician: Respiratory; Name: ; Notified At: ; Arrived At: Physician: Lab; Name: ; Notified At: ; Arrived At: Historical: - Allergies: 11/29 23:48 dermabond; lp1 23:48 Requip; lp1 23:48 Tramadol HCl; lp1 23:48 ropinirole HCl; lp1 - Home Meds: 11/30 00:40 Advair Diskus 250-50 mcg/dose Inhl dsdv 1 puff 2 times per day [Active]; Nasonex Nasal rr5 [Active]; morphine pump [Active]; Oxycodone HCl Oral [Active]; Clonazepam Oral [Active]; Dexilant Oral [Active]; - PMHx: 11/29 23:48 Asthma; chronic back pain; chrons disease; Disc Degeneration; Fibromyalgia; lp1 - PSHx: 23:48 radius surgery- right arm; gastric sleeve; lp1 - Immunization history:: Adult Immunizations up to date, Last tetanus immunization: unknown. - Social history:: Smoking status: Patient denies any tobacco usage or history of. Screenin:48 Abuse screen: Denies threats or abuse. Denies injuries from another. Nutritional lp1 screening: No deficits noted. Tuberculosis screening: No symptoms or risk factors identified. 11/30 00:10 Fall Risk Fall in past 12 months (25 points). Total [place] Fall Scale indicates Low Risk rr5 Score (25-44 pts). Fall prevention measures have been instituted. Side Rails Up X 2 Frequent Obs/Assesments occuring As available Patient and Family Educated on Fall Prevention Program and strategies. Primary Survey: 00:00 NO uncontrolled hemorrhage observed. A: The patient is alert. Airway: patent, No rr5 supplemental oxygen in use on arrival. Oral cavity: clear, gag reflex present, Trachea midline. Breathing/Chest: Respiratory pattern: regular, Respiratory effort: spontaneous, unlabored, Breath sounds: clear, bilaterally. Chest inspection: symmetrical rise and fall of the chest. Circulation: Pulses: palpable right radial artery and left radial artery. Skin color: pink. Disability Alert. Exposure/Environment: There is no evidence of uncontrolled external bleeding. Obvious injury(ies) are noted at this time: abrasion and swelling right forehead A warming method has been applied: A warm blanket has been provided to the patient. 01:00 Reassessment Airway Airway Patent Breathing/Chest Respiratory pattern Regular rr5 Respiratory effort Spontaneous Unlabored Disability Alert. Secondary Survey: 00:00 HEENT: Head No injury/deformity Face Other abrasion and swelling right side of the rr5 forehead. 00:00 Gastrointestinal:. Musculoskeletal: Reports pain in right elbow. rr5 Assessment: 00:00 General: Appears in no apparent distress. comfortable, Behavior is calm, cooperative, rr5 appropriate for age. Pain: Complains of pain in forehead Pain does not radiate. Pain currently is 8 out of 10 on a pain scale. Quality of pain is described as aching, Pain began suddenly, Is intermittent. Neuro: Level of Consciousness is awake, alert, obeys commands, Oriented to person, place, time, situation, Denies LOC. Cardiovascular: Capillary refill < 3 seconds Patient's skin is warm and dry. Respiratory: Airway is patent Trachea midline Respiratory effort is even, unlabored, Respiratory pattern is regular, symmetrical. GI: No signs and/or symptoms were reported involving the gastrointestinal system. : No signs and/or symptoms were reported regarding the genitourinary system. EENT: No signs and/or symptoms were reported regarding the EENT system. Derm: Skin is intact, is healthy with good turgor, Skin temperature is warm. Musculoskeletal: Capillary refill < 3 seconds, Reports pain in neck and right elbow. 00:10 Reassessment: ice compress applied forehead area. rr5 01:15 Reassessment: Patient appears in no apparent distress at this time. Patient and/or rr5 family updated on plan of care and expected duration. Pain level reassessed. Patient is alert, oriented x 3, equal unlabored respirations, skin warm/dry/pink. awaiting for CT result. 02:22 Reassessment: Patient appears in no apparent distress at this time. Patient is alert, rr5 oriented x 3, equal unlabored respirations, skin warm/dry/pink. discharge instruction given and explained without complaints made. Vital Signs: 11/29 23:45 BP 124 / 75; Pulse 80; Resp 18; Temp 98.5; Pulse Ox 97% ; Weight 86.18 kg; Height 5 ft. rr5 5 in. (165.10 cm); Pain 11/20; 11/30 00:37 BP 126 / 82; Pulse 86; Resp 17; Pulse Ox 99% ; rr5 01:15 BP 133 / 89; Pulse 85; Resp 17; Pulse Ox 100% ; rr5 02:19 BP 127 / 62; Pulse 80; Resp 16; Pulse Ox 100% ; rr5 11/29 23:45 Body Mass Index 31.62 (86.18 kg, 165.10 cm) rr5 [place] Coma Score: 00:37 Eye Response: spontaneous(4). Verbal Response: oriented(5). Motor Response: obeys rr5 commands(6). Total: 15. 02:20 Eye Response: spontaneous(4). Verbal Response: oriented(5). Motor Response: obeys rr5 commands(6). Total: 15. Trauma Score (Adult): 00:37 Eye Response: spontaneous(1); Verbal Response: oriented(1); Motor Response: obeys rr5 commands(2); Systolic BP: > 89 mm Hg(4); Respiratory Rate: 10 to 29 per min(4); Barbara Score: 15; Trauma Score: 12 02:20 Eye Response: spontaneous(1); Verbal Response: oriented(1); Motor Response: obeys rr5 commands(2); Systolic BP: > 89 mm Hg(4); Respiratory Rate: 10 to 29 per min(4); [place] Score: 15; Trauma Score: 12 ED Course: 11/29 23:19 Patient arrived in ED. cl3 23:46 Triage completed. lp1 23:48 Arm band placed on. lp1 23:50 Patient has correct armband on for positive identification. Placed in gown. Bed in low rr5 position. Call light in reach. Pulse ox on. NIBP on. 23:56 Baldo Lopez RN is Primary Nurse. rr5 11/30 00:00 Surinder Davis PA is PHCP. jr8 00:00 Buzz New MD is Attending Physician. jr8 00:05 Patient maintains SpO2 saturation greater than 95% on room air. Thermoregulation: warm rr5 blanket given to patient. 00:37 No provider procedures requiring assistance completed. rr5 01:22 CT Head C Spine In Process Unspecified. EDMS 02:20 Patient did not have IV access during this emergency room visit. rr5 Administered Medications: No medications were administered Intake: 01:18 PO: 100ml (Water); Total: 100ml. rr5 Outcome: 02:02 Discharge ordered by . jr8 02:20 Discharged to home via wheelchair. rr5 02:20 Condition: stable 02:20 Discharge instructions given to patient, Instructed on discharge instructions, follow up and referral plans. Demonstrated understanding of instructions, follow-up care. 02:21 Patient's length of stay was not longer than 2 hours. rr5 02:23 Patient left the ED. rr5 Signatures: Dispatcher [employer] EDMS Melia Delcid RN RN lp1 Surinder Davis PA PA jr8 Baldo Lopez RN RN rr5 Vince Nieto cl3 Corrections: (The following items were deleted from the chart) 02:21 02:20 IV discontinued, intact, bleeding controlled, No redness/swelling at site. rr5 Pressure dressing applied, rr5
[2019-12-01 03:32] VITALS: TEMP 98.5
[2019-12-01 03:35] VITALS: O2SAT 100
[2019-12-01 03:36] VITALS: BP 127/62
--- NOTE | 2019-12-01 15:16 | RAD REPORT ---
EXAM DESCRIPTION: CT Head C Spine [facility] CLINICAL HISTORY: 49 years Female Fall , injury TECHNIQUE: Contiguous axial CT images obtained through the brain and cervical spine without IV contr ast. Coronal and sagittal reformatted images also provided. This CT exam was performed according to our departmental dose-optimization program, which includes on e or more of the following dose reduction techniques: automated exposure control, adjustment of the m A and/or kV according to patient size, and/or use of iterative reconstruction technique. COMPARISON: No prior exams provided for comparison. FINDINGS: There is mild right frontal scalp swelling without acute skull fracture, intracranial hemo rrhage, extraaxial collection, or acute transcortical infarction. The ventricles are normal in size a nd contour without mass effect or midline shift. The visualized paranasal sinuses, tympanomastoid cav ities, and orbits are normal. There is no acute cervical fracture or spondylolisthesis. There is mild multilevel degenerative disc disease and uncovertebral arthrosis scattered throughout t he cervical spine. No aggressive osseous lesion. No acute paraspinal soft tissue abnormality. Patchy air trapping in the lung apices. At C2-C3, there is slight left neural foraminal narrowing. At C3-C4, there is slight flattening of the ventral aspect of the thecal sac with mild right and slig ht left neural foraminal stenosis. At C4-C5, there is flattening of the ventral aspect of the thecal sac with moderate bilateral neural foraminal stenosis. At C5-C6, there is slight flattening of the ventral aspect of the thecal sac with slight left neural foraminal narrowing. At C6-C7, there is slight right neural foraminal narrowing. IMPRESSION: Mild right frontal scalp swelling without is a fracture or acute intracranial abnormalit y. No acute cervical spine injury. Mild multilevel degenerative changes. Electronically signed by: Jess Kwan MD 12/01/2019 1:35 AM CDT Due to temporary technical issues with the PACS/Fluency reporting system, reports are being signed by the in house radiologist without review as a courtesy to ensure prompt reporting. The interpreting r adiologist is fully responsible for the content of the report.
== END 2019-12-01 02:23 | disposition home or self-care (01) ==
LOC: ER 23:17
DX: S00.90XA Unspecified superficial injury of unspecified part of head, initial encounter (principal); W18.12XA Fall from or off toilet with subsequent striking against object, initial encounter; Y93.89 Activity, other specified; Y92.9 Unspecified place or not applicable; Z88.5 Allergy status to narcotic agent; Z88.8 Allergy status to other drugs, medicaments and biological substances; Z91.048 Other nonmedicinal substance allergy status; G89.29 Other chronic pain
CPT/HCPCS: 70450; 72125; 99284